=== PATIENT | female | born 1960 | race Caucasian/White ===

== ENCOUNTER 2019-08-05 16:52 | Emergency (ER) | payer BC ==
[2019-08-05 18:13] LABS: Absolute Lymphocytes (CBC) 2.8 K/uL (0.7-4.9); Basophils % 0.5 % (0-1.3); Hematocrit 43.4 % (36.0-45.0); MPV 9.2 fL (7.6-11.3); RBC Red Blood Cell Count 4.85 M/uL (3.86-4.86)
[2019-08-05] MEDS ORDERED: MORPHINE 4 MG/ML SYR ONE (18:34)
[2019-08-05] MEDS ORDERED: ONDANSETRON 4 MG/2 ML VIAL ONE (18:35)
[2019-08-05 18:45] LABS: ALT/SGPT 20 U/L (12-78); AST/SGOT 15 U/L (15-37); Albumin 3.8 g/dL (3.4-5.0); Alkaline Phosphatase 86 U/L (45-117); BUN Blood Urea Nitrogen 11 mg/dL (7-18); Bicarbonate 27 mmol/L (21-32); Bilirubin Direct < 0.1 mg/dL (0-0.2); Bilirubin Total 0.4 mg/dL (0.2-1.0); Glucose Level 115 mg/dL (74-106); Lipase 81 U/L (73-393); Potassium 3.7 mmol/L (3.5-5.1); Protein, Total 7.9 g/dL (6.4-8.2); Sodium Level 140 mmol/L (136-145)
--- NOTE | 2019-08-05 18:54 | RAD REPORT ---
EXAM DESCRIPTION: CT - Abdomen Pelvis W Contrast - 08/05/2019 6:04 pm CLINICAL HISTORY: lower abdominal pain COMPARISON: CT ABD PELVIS W CONTRAST dated 10/03/2007 TECHNIQUE: Biphasic, helical CT imaging of the abdomen and pelvis was performed following 100 ml non -ionic IV contrast. No oral contrast administered. All CT scans are performed using dose optimization technique as appropriate and may include automated exposure control or mA/KV adjustment according to patient size. FINDINGS: No suspicious findings in the lung bases. Multiple granulomas are present in the lung base s. No pericardial effusion or cardiomegaly. Fatty infiltration is seen in the liver with no focal liver lesion identified. Numerous splenic granu stevie are present without focal splenic finding. No acute pancreatic finding. Large gallstone is pres ent in the fundus of the gallbladder similar to 2008 imaging. No acute gallbladder or biliary tree fi nding. Renal function is symmetric. There is hydronephrosis of the pelvis and calices with mild dilatation o f the proximal ureter. No obstructing calculus. This is only slightly worse than 2018 and is probably chronic. No delayed function on the right. No pyelonephritis or acute parenchymal process. No bladde r abnormalities. Bilateral adrenal masses are stable from 2008. No stomach or small bowel acute finding. No appendicitis findings. Patient has very prominent sigmoid diverticulosis. Distal sigmoid colon shows wall thickening and edema. There is stranding in the giuliana cent fat. No extraluminal air or fluid identified. No free air or pneumatosis. Trace amounts of free fluid seen. No hernia, mass or bulky lymphadenopat hy. Lower lumbar degenerative change present. No acute lumbar finding. IMPRESSION: Mild sigmoid diverticulitis. No abscess, free air or surgically emergent finding. Hydronephrosis of the proximal right collecting system is present slightly worse than 2008. Renal fun ction is symmetric. This is not seen as an acute finding. Cholelithiasis, bilateral adrenal masses and fatty liver disease or all similar to comparison.
[2019-08-05] MEDS ORDERED: SMZ./TMP. 800/160 MG TABLET ONE (20:01)
[2019-08-05] MEDS ORDERED: METRONIDAZOLE 500mg IVPB 500 MG/100 ML BAG IV ONE (20:02)
--- NOTE | 2019-08-05 20:41 | ER ---
Nurse's Notes [facility] Name: Alona Louie Age: 59 yrs Sex: Female : 1960 Arrival Date: 08/05/2019 Time: 16:57 Bed 15 Private MD: None, None Diagnosis: Acute Diverticulitis Presentation: 08/04 17:00 Chief complaint: Patient states: Left hip pain that radiates into left knee for 3 ll1 weeks. Left sided groin pain for 4 days. Fever 99.4. Coronavirus screen: Proceed with normal triage. Patient denies a cough. Patient denies shortness of breath or difficulty breathing. Patient denies measured and/or subjective temperature greater than 100.4F prior to today's visit. Patient denies travel on a cruise ship or to a country the [facility] currently lists as an affected area. Patient denies contact with known and/or suspected case of COVID-19. Ebola Screen: Patient denies travel to an Ebola-affected area in the 21 days before illness onset. Initial Sepsis Screen: Does the patient meet any 2 criteria? HR > 90 bpm. No. Patient's initial sepsis screen is negative. Does the patient have a suspected source of infection? Yes: Acute abdominal pain. Risk Assessment: Do you want to hurt yourself or someone else? Patient reports no desire to harm self or others. Onset of symptoms was August 01, 2019. 17:00 Method Of Arrival: Ambulatory ll1 17:00 Acuity: GERARDO 3 ll1 Historical: - Allergies: 17:03 Levaquin; ll1 - PSHx: 17:03 D \T\ C; Tonsillectomy; ll1 - Immunization history:: Flu vaccine is not up to date. - Social history:: Smoking status: Patient reports the use of cigarette tobacco products, smokes one-half pack cigarettes per day, Patient/guardian denies using alcohol, street drugs. Screenin:30 Abuse screen: Denies threats or abuse. Nutritional screening: No deficits noted. Tuberculosis screening: No symptoms or risk factors identified. Fall Risk None identified. Assessment: 17:28 General: Appears uncomfortable, Behavior is calm, cooperative, appropriate for age. Pain: Complains of pain in left lower quadrant Pain currently is 5 out of 10 on a pain scale. Neuro: Level of Consciousness is awake, alert, obeys commands, Oriented to person, place, time, situation, Appropriate for age. Cardiovascular: Heart tones S1 S2 present Capillary refill < 3 seconds Patient's skin is warm and dry. Respiratory: Airway is patent Respiratory effort is even, unlabored. GI: Abdomen is obese, Last BM was August 05, 2019. Bowel sounds present X 4 quads. Abd is non tender Reports nausea. Derm: Skin is intact, is healthy with good turgor. 19:00 Reassessment: Patient and/or family updated on plan of care and expected duration. Pain ah level reassessed. Patient is alert, oriented x 3, equal unlabored respirations, skin warm/dry/pink. Pt lying in bed resting with eyes closed and resp even and unlabored. No needs voiced at this time. at bedside. 20:00 Reassessment: Patient and/or family updated on plan of care and expected duration. Pain ah level reassessed. REceiving antibiotics via IV. NO needs voiced at this time. Vital Signs: 17:00 BP 193 / 81; Pulse 98; Resp 18; Temp 98.8; Pulse Ox 96% ; Pain 5/10; ll1 18:00 BP 177 / 87; Pulse 87; Resp 18; Pulse Ox 93% ; ah 19:00 BP 100 / 55; Pulse 91; Resp 18; Pulse Ox 97% ; ah 20:00 BP 147 / 67; Pulse 93; Resp 18; Pulse Ox 97% ; ah ED Course: 16:57 Patient arrived in ED. mr 16:57 None, None is Private Physician. mr 17:03 Triage completed. 1 17:04 Arm band placed on Patient placed in an exam room, on a stretcher. [facility] 17:07 Andreea Underwood, RN is Primary Nurse. 17:21 Alexis Begum PA is PHCP. [facility] 17:21 Lm Schmid MD is Attending Physician. [facility] 17:31 Patient has correct armband on for positive identification. Bed in low position. Call light in reach. Side rails up X 1. Adult w/ patient. Pulse ox on. NIBP on. 17:52 Placed in gown. Pillow given. Verbal reassurance given. jp3 17:52 Initial lab(s) drawn, by me, sent to lab. Inserted saline lock: 20 gauge in right jp3 antecubital area, using aseptic technique. Blood collected. Patient maintains SpO2 saturation greater than 95% on room air. 18:04 CT Abd/Pelvis - IV Contrast Only In Process Unspecified. EDMS 20:42 Jace Chanel MD is Referral Physician. [facility] 21:18 No provider procedures requiring assistance completed. IV discontinued, intact, ah bleeding controlled, No redness/swelling at site. Pressure dressing applied. Administered Medications: 18:15 Drug: morphine 4 mg Route: IVP; Site: right antecubital; 18:15 Drug: Zofran (Ondansetron) 4 mg Route: IVP; Site: right antecubital; 20:00 Drug: Flagyl 500 mg Volume: 100 ml; Route: IVPB; Rate: 200 ml/hr; Infused Over: 30 ah mins; Site: right antecubital; 20:00 Drug: Bactrim (160 mg-800 mg (DS) 1 tablet Route: PO; Outcome: 20:40 Discharge ordered by . [facility] 21:17 Discharged to home ambulatory. 21:17 Condition: stable 21:17 Discharge instructions given to patient, Instructed on discharge instructions, follow up and referral plans. medication usage, Demonstrated understanding of instructions, follow-up care, medications, Prescriptions given X 3. 21:20 Patient left the ED. Signatures: Dispatcher [employer] EDMS Alexis Begum PA PA jmm Rivera, Mary Beto Garcia jp3 Andreea Underwood, RN Sylvain Craft RN RN ll1
--- NOTE | 2019-08-05 20:41 | EDPHYS ---
Physician Documentation [facility] Name: Alona Louie Age: 59 yrs Sex: Female : 1960 Arrival Date: 08/05/2019 Time: 16:57 Bed 15 Private MD: None, None ED Physician Lm Schmid HPI: 08/04 17:36 This 59 yrs old Female presents to ER via Ambulatory with complaints of jmm Abdominal Pain, Hip Pain, Knee Pain. 17:36 The patient presents with abdominal pain in the lower abdomen. Onset: The jmm symptoms/episode began/occurred gradually, 4 day(s) ago. The symptoms do not radiate. Associated signs and symptoms: Pertinent positives: nausea. The symptoms are described as achy. This is a 59 year old female that presents to the ED with complaints of left sided abdominal pain beginning approx 4 days ago. Patient also complains of ongoing pain to her left back, radiating down her left hip and left lower leg. . Historical: - Allergies: 17:03 Levaquin; ll1 - PSHx: 17:03 D \T\ C; Tonsillectomy; ll1 - Immunization history:: Flu vaccine is not up to date. - Social history:: Smoking status: Patient reports the use of cigarette tobacco products, smokes one-half pack cigarettes per day, Patient/guardian denies using alcohol, street drugs. ROS: 17:36 Constitutional: Negative for fever, chills, and weight loss, Cardiovascular: Negative jmm for chest pain, palpitations, and edema, Respiratory: Negative for shortness of breath, cough, wheezing, and pleuritic chest pain. 17:36 Abdomen/GI: Positive for abdominal pain. 17:36 Back: Positive for pain with movement. 17:36 MS/extremity: Positive for pain. 17:36 All other systems are negative. Exam: 17:36 Constitutional: This is a well developed, well nourished patient who is awake, alert, jmm and in no acute distress. Head/Face: atraumatic. Eyes: EOMI, no conjunctival erythema appreciated ENT: Moist Mucus Membranes Neck: Trachea midline, Supple Chest/axilla: Normal chest wall appearance and motion. Cardiovascular: Regular rate and rhythm. No edema appreciated Respiratory: Normal respirations, no respiratory distress appreciated 17:36 Back: Normal ROM Skin: General appearance color normal MS/ Extremity: Moves all extremities, no obvious deformities appreciated, no edema noted to the lower extremities Neuro: Awake and alert, normal gait Psych: Behavior is normal, Mood is normal, Patient is cooperative and pleasant 17:36 Abdomen/GI: Inspection: abdomen appears normal, Bowel sounds: normal, Palpation: soft, moderate abdominal tenderness, in the left lower quadrant. Vital Signs: 17:00 BP 193 / 81; Pulse 98; Resp 18; Temp 98.8; Pulse Ox 96% ; Pain 5/10; ll1 18:00 BP 177 / 87; Pulse 87; Resp 18; Pulse Ox 93% ; ah 19:00 BP 100 / 55; Pulse 91; Resp 18; Pulse Ox 97% ; ah 20:00 BP 147 / 67; Pulse 93; Resp 18; Pulse Ox 97% ; ah MDM: 17:36 Patient medically screened. [facility] 20:38 Data reviewed: vital signs, nurses notes. Counseling: I had a detailed discussion with [facility] the patient and/or guardian regarding: the historical points, exam findings, and any diagnostic results supporting the discharge/admit diagnosis, lab results, radiology results, the need for outpatient follow up, to return to the emergency department if symptoms worsen or persist or if there are any questions or concerns that arise at home. 21:27 ED course: Patient is alert and non toxic in appearance in the ED. Back pain most jmm likely due to sciatica. I do not suspect cauda equina or abscess. CT reveals mild diverticulitis. Patient's pain is relieved in the ED. Patient is given strict return precautions. Patient understood and agrees with the plan of care. . 08/04 17:37 Order name: Basic Metabolic Panel; Complete Time: 18:46 [facility] 08/04 17:37 Order name: CBC with Diff; Complete Time: 18:25 [facility] 08/04 17:37 Order name: Hepatic Function; Complete Time: 18:46 [facility] 08/04 17:37 Order name: Lipase; Complete Time: 18:46 [facility] 08/04 18:34 Order name: CREATININE WHOLE BLOOD; Complete Time: 18:37 [facility] 08/04 20:08 Order name: Urine Dipstick--Ancillary (enter results) wy 08/04 17:37 Order name: IV Saline Lock; Complete Time: 17:53 [facility] 08/04 17:37 Order name: Labs collected and sent; Complete Time: 17:53 [facility] 08/04 17:37 Order name: Urine Dipstick-Ancillary (obtain specimen); Complete Time: 20:09 [facility] 08/04 17:38 Order name: CT Abd/Pelvis - IV Contrast Only; Complete Time: 18:58 [facility] Administered Medications: 18:15 Drug: morphine 4 mg Route: IVP; Site: right antecubital; 18:15 Drug: Zofran (Ondansetron) 4 mg Route: IVP; Site: right antecubital; 20:00 Drug: Flagyl 500 mg Volume: 100 ml; Route: IVPB; Rate: 200 ml/hr; Infused Over: 30 ah mins; Site: right antecubital; 20:00 Drug: Bactrim (160 mg-800 mg (DS) 1 tablet Route: PO; ah Disposition: 08/05/19 20:40 Discharged to Home. Impression: Acute Diverticulitis. - Condition is Stable. - Discharge Instructions: Diverticulitis. - Prescriptions for Flagyl 500 mg Oral Tablet - take 1 tablet by ORAL route every 6 hours for 10 days; 40 tablet. Ultracet 37.5- 325 mg Oral Tablet - take 1 tablet by ORAL route every 6 hours - for up to 5 days; do not exceed 8 tablets per day.; 20 tablet. Bactrim DS 800- 160 mg Oral Tablet - take 1 tablet by ORAL route every 12 hours for 10 days; 20 tablet. - Medication Reconciliation Form, Thank You Letter, Antibiotic Education, Prescription Opioid Use form. - Follow up: Private Physician; When: 2 - 3 days; Reason: Recheck today's complaints, Continuance of care, Re-evaluation by your physician. Follow up: Jace Chanel MD; When: 2 - 3 days; Reason: Recheck today's complaints, Continuance of care, Re-evaluation by your physician. Addendum: 08/08/2019 07:21 Co-signature as Attending Physician, Lm Schmid MD. r n Signatures: Dispatcher [employer] EDMS Alexis Begum PA PA jmm Nieto, Roman, MD MD rn Harris, Amy, RN RN Sylvain Hilliard RN RN ll1 Corrections: (The following items were deleted from the chart) 08/04 20:42 20:40 08/05/2019 20:40 Discharged to Home. Impression: Acute Diverticulitis. Condition jmm is Stable. Forms are Medication Reconciliation Form, Thank You Letter, Antibiotic Education, Prescription Opioid Use. Follow up: Private Physician; When: 2 - 3 days; Reason: Recheck today's complaints, Continuance of care, Re-evaluation by your physician. [facility] 21:20 20:42 08/05/2019 20:40 Discharged to Home. Impression: Acute Diverticulitis. Condition ah is Stable. Discharge Instructions: Diverticulitis. Prescriptions for Flagyl 500 mg Oral Tablet - take 1 tablet by ORAL route every 6 hours for 10 days; 40 tablet, Ultracet 37.5-325 mg Oral Tablet - take 1 tablet by ORAL route every 6 hours - for up to 5 days; do not exceed 8 tablets per day.; 20 tablet, Bactrim DS 800-160 mg Oral Tablet - take 1 tablet by ORAL route every 12 hours for 10 days; 20 tablet. and Forms are Medication Reconciliation Form, Thank You Letter, Antibiotic Education, Prescription Opioid Use. Follow up: Private Physician; When: 2 - 3 days; Reason: Recheck today's complaints, Continuance of care, Re-evaluation by your physician. Follow up: Jace Chanel; When: 2 - 3 days; Reason: Recheck today's complaints, Continuance of care, Re-evaluation by your physician. [facility]
[2019-08-05 21:27] VITALS: TEMP 98.8
[2019-08-05 21:30] VITALS: O2SAT 97
[2019-08-05 21:31] VITALS: BP 147/67
[2019-08-05 21:46] LABS: Urine Blood TRACE (NEG); Urine Glucose NEGATIVE (NEG); Urine Protein NEGATIVE (NEG); Urine Specific Gravity 1.015 (1.005-1.030)
== END 2019-08-05 21:20 | disposition home or self-care (01) ==
LOC: ER 16:52
DX: K57.92 Diverticulitis of intestine, part unspecified, without perforation or abscess without bleeding (principal); F17.210 Nicotine dependence, cigarettes, uncomplicated; Z88.1 Allergy status to other antibiotic agents
CPT/HCPCS: 85025; 80048; 36415; 82565; 80076; 81003; 83690; 74177; 96375; 96374; 99284; Q9967; J2405

== ENCOUNTER 2023-07-14 15:14 | Emergency (ER) | payer BC ==
--- OUTSIDE RECORDS SUMMARY | 2023-07-14 15:17 | XMS REPORT | Continuity of Care Document ---
Author Name Unknown Address [address] [facility] [address] [place] [id number] [facility] thconnect Address [address] [facility] [address] [place] [address] Care Team Providers Care Trackmobile Operator Name Role Phone ETHEL WRAY Attending Clinician UnavailJESUS Campbell Attending Clinician UnavailDUSTIN Wilks V. Attending Clinician Unavailable DUSTIN COUCH V. Admitting Clinician Unavailable Encounters Start Date/Time End Date/Time Encounter Type Admission Type Attending Clinicians Care Facility Care Department Encounter ID Source 2013-08-10 21:11:00 2013-08-11 02:18:00 Emergency ER ETHEL WRAY [facility] [id number] [facility] 2006-08-14 07:48:00 2006-08-14 11:35:00 Emergency ER JESUS BRODERICK [facility] [id number] [facility] 2004-06-15 16:45:00 2004-06-16 18:41:00 Inpatient DUSTIN TORRES [facility] [id number] [facility]
[2023-07-14] MEDS ORDERED: FLUCONAZOLE 100 MG TAB ONE (17:28)
[2023-07-14] MEDS ORDERED: CEPHALEXIN 250 MG CAP ONE (17:28)
[2023-07-14] MEDS ORDERED: DOXYCYCLINE 100 MG CAP PO ONE (17:29)
[2023-07-14] MEDS ORDERED: MUPIROCIN 2% OINT 22GM TUBE TOP ONE (17:29)
--- NOTE | 2023-07-14 17:39 | EDPHYS ---
Physician Documentation [facility] Name: Alona Louie Age: 63 yrs Sex: Female : 1960 Arrival Date: 07/14/2023 Time: 15:14 Bed 12 Private MD: ED Physician Sindhu Cain HPI: 07/13 18:57 This 63 yrs old Female presents to ER via Ambulatory with complaints of Hand Pain, Hand sd2 Swelling. 18:57 63-year-old female presents with chief complaint of right hand pain and swelling since sd2 she initially had a skin tear to it approximately 2 weeks ago and then had a second skin tear. She reports she has had some spreading redness from the area along with blistering. She also reports an area to her groin that has been irritated as well. She denies any associated fevers or vomiting.. Historical: - Allergies: 15:41 Levaquin; hb - PMHx: 15:41 Diverticulitis; hb - Immunization history:: Adult Immunizations up to date. - Infectious Disease History:: Denies. - Social history:: Smoking status: Patient denies any tobacco usage or history of. ROS: 18:57 Constitutional: Negative for fever, chills, and weight loss, Eyes: Negative for injury, sd2 pain, redness, and discharge, Cardiovascular: Negative for chest pain, palpitations, and edema, Respiratory: Negative for shortness of breath, cough, wheezing. Abdomen/GI: Negative for abdominal pain, nausea, vomiting, diarrhea. 18:57 MS/extremity: Positive for erythema, pain, swelling, Negative for 18:57 Skin: Positive for erythema, swelling, Exam: 18:57 Constitutional: This is a well developed, well nourished patient who is awake, alert, sd2 and in no acute distress. Head/Face: Normocephalic, atraumatic. Eyes: EOMI, normal conjunctiva bilaterally Chest/axilla: Normal chest wall appearance and motion. Nontender with no deformity. Cardiovascular: Regular rate and rhythm with a normal S1 and S2. No gallops, murmurs, or rubs. 2+ distal pulses. Respiratory: Lungs have equal breath sounds bilaterally, clear to auscultation and percussion. No rales, rhonchi or wheezes noted. No increased work of breathing, no retractions or nasal flaring. Abdomen/GI: Soft, non-tender, with normal bowel sounds. No guarding or rebound. No evidence of tenderness throughout. Area noted to L inferior pannus consistent with yeast infection and skin irritation. Skin: Warm, dry with normal turgor. Flat blisters noted to dorsum of right hand along with surrounding erythema, warmth and small amount of swelling. FROM of all joints intact. MS/ Extremity: Pulses equal, no cyanosis. Neurovascular intact. Full, normal range of motion. Vital Signs: 15:38 BP 200 / 100; Pulse 92; Resp 16; Temp 98.3(O); Pulse Ox 100% on R/A; Weight 127.01 kg; hb Height 5 ft. 7 in. ; Pain 10/10; 17:31 BP 185 / 84; cm10 15:38 Body Mass Index 43.85 (127.01 kg, 170.18 cm) hb 15:38 Pain Scale: Adult hb MDM: 16:47 Patient medically screened. sd2 18:57 Differential diagnosis: Cellulitis, abscess, tenosynovitis, yeast infection, impetigo sd2 among others. Data reviewed: vital signs, nurses notes. I considered the following discharge prescriptions or medication management in the emergency department Medications were administered in the Emergency Department. See MAR. Counseling: I had a detailed discussion with the patient and/or guardian regarding the historical points, exam findings, and any diagnostic results supporting the discharge/admit diagnosis, the presence of at least one elevated blood pressure reading (>120/80) during this emergency department visit, the need for outpatient follow up, to return to the emergency department if symptoms worsen or persist or if there are any questions or concerns that arise at home. ED course: Discussed performing labs and admission with patient. Her is in the hospital at [facility] for treatment and she would prefer to try outpatient management first and follow up with her PCP instead. She reports she will return immediately if it worsens. Also counseled on her elevated BP. NO prior hx of HTN. She will keep a log at home and follow up with her PCP regarding this as well. She verbalizes understanding of discharge plan and strict return precautions.. 07/13 17:22 Order name: Recheck Blood Pressure; Complete Time: 17:34 ll1 Administered Medications: 17:34 Drug: Mupirocin Topical Ointment 2 % 1 application Topical once Route: Topical; Site: cm10 affected area; 17:34 Drug: Fluconazole PO 150 mg PO once Route: PO; cm10 17:43 Follow up: Response: Medication administered at discharge. cm10 17:34 Drug: Cephalexin PO 500 mg PO once Route: PO; cm10 17:43 Follow up: Response: Medication administered at discharge. cm10 17:34 Drug: Doxycycline PO 100 mg PO once Route: PO; cm10 17:42 Follow up: Response: Medication administered at discharge. cm10 Disposition Summary: 07/14/23 17:39 Discharge Ordered Problem: new sd2 Symptoms: are unchanged sd2 Condition: Stable sd2 Diagnosis - Cellulitis of right hand sd2 - Candidal skin infection sd2 - Elevated blood-pressure reading, without diagnosis of hypertension sd2 Followup: sd2 - With: Private Physician - When: 1 - 2 days - Reason: Wound Recheck, Re-evaluation by your physician Discharge Instructions: - Discharge Summary Sheet sd2 - Cellulitis, Adult sd2 - Hypertension, Adult sd2 - Skin Yeast Infection sd2 Forms: - Medication Reconciliation Form sd2 - Antibiotic Education sd2 - Prescription Opioid Use sd2 - Patient Portal Instructions sd2 - Leadership Thank You Letter sd2 Prescriptions: - mupirocin 2 % Topical ointment - apply 1 application TOPICAL route 2 times per day for 10 days; 1 Applicator; sd2 Refills: 0, Product Selection Permitted - Cephalexin 500 mg Oral Capsule - take 1 capsule ORAL route every 6 hours for 10 days; 40 capsule; Refills: 0, sd2 Product Selection Permitted - Doxycycline Hyclate 100 mg Oral Tablet - take 1 tablet ORAL route every 12 hours; 20 tablet; Refills: 0, Product sd2 Selection Permitted Signatures: Trixie Simon RN RN Sylvain Hilliard RN RN ll1 Sindhu Cain MD MD sd2 Odalys Avendaño RN RN cm10
--- NOTE | 2023-07-14 17:39 | ER ---
Nurse's Notes [facility] Name: Alona Louie Age: 63 yrs Sex: Female : 1960 Arrival Date: 07/14/2023 Time: 15:14 Bed 12 Private MD: Diagnosis: Cellulitis of right hand;Candidal skin infection;Elevated blood-pressure reading, without diagnosis of hypertension Presentation: 07/13 15:38 Chief complaint: Skin tear to right hand 10 days ago, started to swell and have hb blistering 3 days ago. Coronavirus screen: At this time, the client does not indicate any symptoms associated with coronavirus-19. Ebola Screen: No symptoms or risks identified at this time. Initial Sepsis Screen: Does the patient meet any 2 criteria? No. Patient's initial sepsis screen is negative. Does the patient have a suspected source of infection? No. Patient's initial sepsis screen is negative. Risk Assessment: Do you want to hurt yourself or someone else? Patient reports no desire to harm self or others. Onset of symptoms was July 04, 2023. 15:38 Method Of Arrival: Ambulatory hb 15:38 Acuity: GERARDO 3 hb Triage Assessment: 17:45 General: Appears in no apparent distress. comfortable, Behavior is calm, cooperative. cm10 Pain: Complains of pain in right hand. Historical: - Allergies: 15:41 Levaquin; hb - PMHx: 15:41 Diverticulitis; hb - Immunization history:: Adult Immunizations up to date. - Infectious Disease History:: Denies. - Social history:: Smoking status: Patient denies any tobacco usage or history of. Screenin:43 [facility] ED Fall Risk Assessment (Adult) History of falling in the last 3 months, cm10 including since admission No falls in past 3 months (0 pts) Confusion or Disorientation No (0 pts) Intoxicated or Sedated No (0 pts) Impaired Gait No (0 pts) Mobility Assist Device Used No (0 pt) Altered Elimination No (0 pt) Score/Fall Risk Level 0 - 2 = Low Risk Oriented to surroundings, Maintained a safe environment, Hourly rounding (assess needs \T\ fall precautionary measures) done. Abuse screen: Denies threats or abuse. Denies injuries from another. Nutritional screening: No deficits noted. Tuberculosis screening: No symptoms or risk factors identified. Vital Signs: 15:38 BP 200 / 100; Pulse 92; Resp 16; Temp 98.3(O); Pulse Ox 100% on R/A; Weight 127.01 kg; hb Height 5 ft. 7 in. ; Pain 10/10; 17:31 BP 185 / 84; cm10 15:38 Body Mass Index 43.85 (127.01 kg, 170.18 cm) hb 15:38 Pain Scale: Adult hb ED Course: 15:16 Patient arrived in ED. ts1 15:41 Triage completed. hb 15:43 Arm band placed on. hb 16:47 Sindhu Cain MD is Attending Physician. sd2 17:30 Odalys Avendaño, DIONICIO is Primary Nurse. cm10 17:43 Assisted provider with: Skin exam. Patient did not have IV access during this emergency cm10 room visit. 17:44 Patient has correct armband on for positive identification. Provided Education on: cm10 Follow-up instructions. Sitter at bedside. 17:44 Wound care: to cellulitis located on right hand was dressed with Neosporin Kerlix, cm10 Patient tolerated well. Administered Medications: 17:34 Drug: Mupirocin Topical Ointment 2 % 1 application Topical once Route: Topical; Site: cm10 affected area; 17:34 Drug: Fluconazole PO 150 mg PO once Route: PO; cm10 17:43 Follow up: Response: Medication administered at discharge. cm10 17:34 Drug: Cephalexin PO 500 mg PO once Route: PO; cm10 17:43 Follow up: Response: Medication administered at discharge. cm10 17:34 Drug: Doxycycline PO 100 mg PO once Route: PO; cm10 17:42 Follow up: Response: Medication administered at discharge. cm10 Medication: 17:44 VIS not applicable for this client. cm10 Outcome: 17:39 Discharge ordered by . sd2 17:44 Discharged to home ambulatory, cm10 17:44 Condition: good 17:44 Discharge instructions given to patient, Instructed on discharge instructions, follow up and referral plans. medication usage, wound care, Demonstrated understanding of instructions, follow-up care, medications, wound care, Prescriptions given X 3, 17:45 Patient left the ED. cm10 Signatures: Trixie Simon RN RN Sindhu Cain MD MD sd2 Yessi Hernandez PAS PAS ts1 Odalys Avendaño, RN RN cm10
[2023-07-14 18:04] VITALS: TEMP 98.3; O2SAT 100
[2023-07-14 18:05] VITALS: BP 185/84
== END 2023-07-14 17:45 | disposition home or self-care (01) ==
LOC: ER 15:14
DX: L03.113 Cellulitis of right upper limb (principal); B37.2 Candidiasis of skin and nail; R03.0 Elevated blood-pressure reading, without diagnosis of hypertension; Z88.1 Allergy status to other antibiotic agents
CPT/HCPCS: 99284

== ENCOUNTER 2023-10-31 14:19 | Inpatient (IN) | payer BC, OTHER ==
--- OUTSIDE RECORDS SUMMARY | 2023-10-31 22:11 | XMS REPORT | Continuity of Care Document ---
Author Name Unknown Address [address] [facility] [address] [id number] [facility] thconnect Address [address] [facility] [place] [address] Care Team Providers Care Physical Therapist Clinic Director Name Role Phone DAVID GRIMES Attending Clinician STEPHEN Ramírez Attending Clinician BANDAR Mcconnell Attending Clinician ETHEL Sheldon Attending Clinician JESUS Siddiqui Attending Clinician UnavailDUSTIN Wilks V. Attending Clinician KIT Nunez Admitting Clinician DUSTIN Burr V. Admitting Clinician Unavailable Payers Payer Name Policy Type Policy Number Effective Date Expirati on Date Source [facility] [place] PPO AND OUT OF STATE [id number] 2007 00:00:00 Encounters Start Date/Time End Date/Time Encounter Type Admission Type Attending Clinicians Care Facility Care Department Encounter ID Source 2023-12-10 15:30:00 2023-12-10 15:30:00 Outpatient DAVID GRMIES [facility] [id number] [facility] 2023-10-29 12:42:00 2023-10-31 20:45:00 Inpatient STEPHEN MARLOW [facility] [id number] [address] [facility] 2023-08-22 15:45:00 2023-08-22 18:45:00 Emergency ER BANDAR MORRIS [facility] [id number] [facility] 2013-08-10 21:11:00 2013-08-11 02:18:00 Emergency ER NILSETHEL Malave [facility] [id number] [facility] 2006-08-14 07:48:00 2006-08-14 11:35:00 Emergency ER JESUS BRODERICK [facility] [id number] [facility] 2004-06-15 16:45:00 2004-06-16 18:41:00 Inpatient DUSTIN TORRES [facility] [id number] [facility]
[2023-10-31 22:30] VITALS: BMI 38.5
[2023-10-31] MEDS ORDERED: POLYETHYL GLY 3350 17 GM/DOSE PO PRN (22:38)
[2023-10-31] MEDS ORDERED: MELATONIN 3 MG TABLET PO PRN (22:39)
[2023-10-31] MEDS: ACETAMINOPHEN 500 MG TAB PO PRN (22:58)
[2023-11-01] MEDS: HEPARIN 5000 UNIT/ML 1 ML VIAL SQ SCH (00:42)
[2023-11-01 05:32] LABS: Absolute Basophils 0.1 K/uL (0-0.5); Absolute Eosinophils 0.2 K/uL (0-0.5); Absolute Lymphocytes (CBC) 2.5 K/uL (0.7-4.9); Absolute Monocytes 0.8 K/uL (0.1-1.3); Absolute Neutrophil 6.4 K/uL (1.8-8.0); Basophils % 0.7 % (0-1.3); Eosinophils % 2.1 % (0-4.4); Hematocrit 45.2 % (36.0-45.0); Hemoglobin 15.1 g/dL (12.0-15.0); Lymphocytes % 25.1 % (15.3-44.8); MCH 30.3 pg (27.0-35.0); MCHC 33.4 g/dL (32.0-36.0); MCV 90.6 fL (80-100); MPV 8.7 fL (7.6-11.3); Monocytes % 7.9 % (3.3-12.3); Neutrophils % 64.2 % (41.7-73.7); Platelets 250 thou/uL (152-406); RBC Red Blood Cell Count 4.98 M/uL (3.86-4.86); Red Cell Distribution Width 14.1 % (12.1-15.2)
[2023-11-01 05:54] LABS: Albumin 3.5 g/dL (3.4-5.0); Anion Gap 6.7 mEq/L (5.0-15.0); Magnesium 2.2 mg/dL (1.6-2.4); Potassium 3.7 mEq/L (3.5-5.1); Prealbumin 19.4 mg/dL (20-40)
--- NOTE | 2023-11-01 06:51 | RAD REPORT ---
EXAMINATION: ONE VIEW CHEST XR CLINICAL INDICATION: Female, 63 years old. [facility] hx of L PE TECHNIQUE: 1 View, AP supine, X-ray of the chest was performed. [id number]. COMPARISON: No prior exam. FINDINGS: Lungs and pleura: Nonspecific prominence of the pulmonary interstitium. No effusion. Heart and mediastinum: Normal heart size. Unremarkable mediastinal contours. Osseous structures: No acute abnormality. Tubes/lines: None Other: None. IMPRESSION: Nonspecific prominence of the pulmonary interstitium could reflect mild edema or an atypical infectio us process.
[2023-11-01] MEDS: CLOPIDOGREL 75 MG TABLET PO SCH (08:00)
--- NOTE | 2023-11-01 09:28 | P.RH.PN ---
Estimated Length of Stay: 21 Expected Discharge Date: 11/21/23 Discharge Disposition Plan: Home Family Support: Yes Care Home Goal: Mobility, Transfers, Self Care Vital Signs: Last Vital Signs Temp 97.8 F 10/31/23 22:20 Pulse 76 10/31/23 23:55 Resp 18 10/31/23 22:20 BP 157/81 H 10/31/23 23:55 Pulse Ox 93 10/31/23 22:20 Laboratory: Laboratory Last Values WBC 10.00 thou/uL (4.3-10.9) 11/01/23 05:02 RBC 4.98 M/uL (3.86-4.86) H 11/01/23 05:02 Hgb 15.1 g/dL (12.0-15.0) H 11/01/23 05:02 Hct 45.2 % (36.0-45.0) H 11/01/23 05:02 MCV 90.6 fL (80-100) 11/01/23 05:02 MCH 30.3 pg (27.0-35.0) 11/01/23 05:02 MCHC 33.4 g/dL (32.0-36.0) 11/01/23 05:02 RDW 14.1 % (12.1-15.2) 11/01/23 05:02 Plt Count 250 thou/uL (152-406) 11/01/23 05:02 MPV 8.7 fL (7.6-11.3) 11/01/23 05:02 Neutrophils % 64.2 % (41.7-73.7) 11/01/23 05:02 Lymphocytes % 25.1 % (15.3-44.8) 11/01/23 05:02 Monocytes % 7.9 % (3.3-12.3) 11/01/23 05:02 Eosinophils % 2.1 % (0-4.4) 11/01/23 05:02 Basophils % 0.7 % (0-1.3) 11/01/23 05:02 Absolute Neutrophils 6.4 K/uL (1.8-8.0) 11/01/23 05:02 Absolute Lymphocytes 2.5 K/uL (0.7-4.9) 11/01/23 05:02 Absolute Monocytes 0.8 K/uL (0.1-1.3) 11/01/23 05:02 Absolute Eosinophils 0.2 K/uL (0-0.5) 11/01/23 05:02 Absolute Basophils 0.1 K/uL (0-0.5) 11/01/23 05:02 Sodium 138 mEq/L (136-145) 11/01/23 05:02 Potassium 3.7 mEq/L (3.5-5.1) 11/01/23 05:02 Chloride 107 mEq/L (98-107) 11/01/23 05:02 Carbon Dioxide 28 mEq/L (21-32) 11/01/23 05:02 Anion Gap 6.7 mEq/L (5.0-15.0) 11/01/23 05:02 BUN 28 mg/dL (7-18) H 11/01/23 05:02 Creatinine 0.84 mg/dL (0.55-1.02) 11/01/23 05:02 Est GFR (CKD-EPI) 79 ml/min (=/>90) L 11/01/23 05:02 Glucose 113 mg/dL (74-106) H 11/01/23 05:02 Calcium 9.7 mg/dL (8.5-10.1) 11/01/23 05:02 Magnesium 2.2 mg/dL (1.6-2.4) 11/01/23 05:02 Albumin 3.5 g/dL (3.4-5.0) 11/01/23 05:02 Prealbumin 19.4 mg/dL (20-40) L 11/01/23 05:02 Weight: 246 lb Wound Present: No Physician Update: Labs reviewed and are stable. Pain level is 4/10. Has Tylenol and Lidocaine patch. Left hemiparesis is dense. She will be evaluated by speech therapy and physical therapy today. Summary: Patient's care plan and buttermaker goals have been reviewed and revised as necessary. Please see the Rehabilitation Signature page for all necessary signatures.
[2023-11-01] MEDS: NICOTINE 14 MG/PAT TD SCH (09:37)
[2023-11-01] MEDS: lisinopriL 20 MG TAB PO SCH (09:38)
[2023-11-01] MEDS: LIDOCAINE 4% PATCH TOP SCH (09:38)
[2023-11-01] MEDS: ASPIRIN 81 MG CHEWABLE TABLET PO SCH (11:03)
[2023-11-01 15:44] LABS: Specific Gravity 1.028 (1.005-1.030); Sqamous Epithelial <5 /HPF (None Seen); Urine Bacteria <20 /HPF (<20); Urine Bilirubin NEGATIVE (Negative); Urine Blood Negative (Negative); Urine Clarity Clear (Clear); Urine Color Yellow (Yellow); Urine Culture Reflex Order NOT NEEDED; Urine Glucose NEGATIVE (Negative); Urine Ketones NEGATIVE (Negative); Urine Micro Reflex YN NO BILL MICROSCOPIC; Urine Mucus 1+ /HPF (None Seen); Urine Nitrite NEGATIVE (Negative); Urine Protein TRACE (Negative); Urine Urobilinogen Normal (Normal); Urine WBC <5 /HPF (<5); Urine WBC Clump Rare /HPF (None Seen); Urine pH 5.5 (5.0-7.0)
[2023-11-01 17:17] LABS: C.diff Antigen/Toxin Ag neg : Tox neg (NEG : NEG); CDIFF INTERNAL NEG CONTROL White Background (WHITE BKGD); STOOL CONSISTENCY Liquid/Semi-Solid
[2023-11-01] MEDS ORDERED: ATORVASTATIN 80 MG TAB ONE (19:00)
[2023-11-01] MEDS: ATORVASTATIN 80 MG TAB PO SCH (19:04)
[2023-11-01] MEDS: MAGNESIUM OXIDE 400 MG TAB PO SCH (19:04)
[2023-11-01] MEDS: APIXABAN 2.5 MG TABLET PO SCH (19:04)
[2023-11-01] MEDS: ONDANSETRON 4 MG (ODT) TAB PO PRN (21:21)
--- NOTE | 2023-11-02 01:00 | HP ---
Date of Admission: 10/31/2023 Time Of Service: 1 p.m. Chief Complaint: Stroke involving right lenticulostriate region with left-sided paresis dense, upper more than lower extremity weakness, comorbidities of hypertension, diverticulosis, history of smokin g. History Of Present Illness: Ms. Louie is a 63-year-old patient with hypertension, a 75 pack-year hist ory of cigarette smoking, and diverticulosis, who came to [facility] Room on 10/26 with dys arthria and left-sided weakness. The time of onset of her stroke was unclear and therefore intraveno us thrombolysis was out of her window. She was treated with aspirin, Plavix, folic acid, and statin, and sent to [facility] for higher level of care. Her CT angiogram showed larg e vessel arthrosclerosis without large vessel occlusion. 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 There is also a chr onic small left anterior thalamic infarct and chronic microvascular ischemic changes. Transthoracic echocardiogram was unremarkable. Antiplatelet medications and high-dose intense statin therapy were continued. She had permissive hypertension. Her blood pressures did return to high normal levels, b ut within range for poststroke phase. She had hypoxia due to smoking and required 3 L of oxygen via nasal cannula. Prior to her stroke, she did not use oxygen at home. Prior to her stroke, she was in dependent performing activities of daily living and was with her daughter. Following the stroke, she required moderate assistance for bed mobility, transfers, mobilization, only able to ambulate 12 fee t with moderate assistance. She has severe dense left upper extremity more lower extremity weakness, dysarthria, dysphagia, and memory loss. She has used a PureWick for urination and requires bladder training. She could benefit from aggressive inpatient rehabilitation to reduce her risk of rehospita lization and help her to return to her prior level of functioning. Past Medical History: As noted above. Social History: The patient has a 75 pack-year history of tobacco cigarettes. Family History: Noncontributory. Imaging: Chest x-ray on 10/27 shows interval placement of enteric tube, partially changed to Dobhoff . Heart and mediastinum normal. Lungs and pleura show low volume. There is vascular crowding. The re is increased prominence of bilateral perihilar predominance with interstitial opacities. Brain MR I without contrast on 10/27 shows restricted diffusion within the right balderas radiata, posterior ferguson b of the right internal capsule, compatible with an acute infarct in the right lenticulostriate perfo rator territory. In addition, chronic small left anterior thalamic infarct and chronic microvascular ischemic changes. Current Level Of Functioning: She required supervision for eating, oral hygiene. Maximal assistance for toileting, bathing, and dressing upper and lower body. Donning and doffing footwear at maximal assistance level. Rolling [id number], moderate assistance. [id number], moderate assistance. Sliding to side of bed, moderate assistance needed. Transfer from bed to chair to toile t to shower at a moderate assistance level. Gait, she ambulated just 3 feet with a rolling walker at maximum assistance level, unable to negotiate stairs at this point. Medications: Reviewed. She will have permissive hypertension, statin, folic acid will be continued. Parameters for holding blood pressure when systolic is less than 130. Urinalysis will be done to r ule out infection. She will have blood work which will be pending. Laboratory Studies: White blood cell count 11.7, hemoglobin 15, hematocrit 45, platelets 252. Sodiu m 140, potassium 3.9, chloride 109, glucose 99, BUN 14, creatinine 0.89, calcium 9.7. Review of Systems: She has of course dense paresis and weakness of the left upper extremity. Mild nausea. No vomiting. Mild myalgias, arthralgias. No rash. No psychiatric complaints. No other positives on the system s review. Physical Examination: Vital Signs: Blood pressure 145/76, pulse 68, temperature afebrile, respiratory rate 16. Height 67 inches, weight 246 pounds, BMI 38.525. General: Ms. Louie is sitting in a chair in the watts. HEENT: She is normocephalic, atraumatic. Sclerae anicteric. Oropharynx pink, moist. Neck: Supple. Chest: Clear. Heart: Regular. Extremities: Show no significant edema, cyanosis, or clubbing. Neurological: Slight decrease of left nasolabial fold. Slight decrease to touch and temperature in the left face. Left upper extremity, 0 movement at shoulders, biceps, triceps, and finger flexion, e xtension, and wrist flexion, extension. Left lower extremity, she has 1/5 proximally and distally. Decreased sensation on the left compared to right upper and lower extremity. Right side fully strong 5/5. She is as noted only able to ambulate 2 feet with maximal assistance. Rehab And Medical Assessment And Plan: Ms. Louie is a 63-year-old patient with hypertension, chronic tobacco use, and a right lenticulostriate territory stroke with dense paresis of the left upper more than lower extremity, dysarthria, dysphagia. She also has cognitive impairment. Her rehab impairmen t category, 01, stroke. Her impairment group code is 0.11, left body, right brain. 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 Her comorbidities are decre ased mobility, decreased physical functioning, dysphagia, essential hypertension, hypoxia, left hemip aresis, tobacco use, pleural effusion. She also has left shoulder pain, only did indicate she go all the left side, 18 patches on the left shoulder, 1 was put on the left elbow. Plan: She will have physical, occupational, and speech therapy for 3.5 hours, 5 of 7 days. As noted , some mild permissive hypertension. In addition, high-dose statin and folic acid, address issues of potential aspiration. She will be upright with all meals, transfers will be by a gait belt with a r olling walker at bedside to reduce her fall risk. Mobilization largely at this point may be by a whe elchair. DVT prophylaxis provided with Eliquis 2.5 mg twice daily for sleep, melatonin 3 mg at night for constipation, Senokot-S 2 tablets at night for pain, Tylenol 500 mg every 6 hours as needed. Comorbidities That Are Impacting Rehabilitation: Her tobacco dependency puts her at risk for tobacco withdrawal. She may have nicotine patch 14 mg patch daily or 21 mg patch daily depending on withdra wal symptoms. She is at high risk of fall because of the dense paresis of the left side including he r left upper extremity, so gait belt and rolling walker to be used at all times with all transfers an d all therapy. Of course, risk of aspiration present, upright with meals. Chest x-ray will be used as appropriate. Ms. Louie will have 24 hours a day, 7 days a week skilled rehabilitation and nursing to address acute issues, changes, need for communication with physicians regarding her medical status and potential co mplication and need for intervention with medications, blood draws, urinalysis, and imaging. She angelica l have daily physician evaluation and management for integrating her therapy with her medical care in order for her to have the best outcome. She will have social security specialist evaluation and management for discharge planning, home equipment, for therapy to continue, for physician followup. If need be, ad ditional help will be sought from the Hospitalist Service and GI Service. Ms. Loiue has a good understanding of the process of admission to the inpatient rehabilitation [facility] and how she will benefit from physical, occupational, and speech therapy. Rehabilitation at a less er facility such as [facility] would likely not result in best outcome as it is within the [facility] rehabilitation unit. Therefore, it is necessary and helpful for [facility]. Prognosis: Good. Expected Length Of Stay: Up to 3 weeks. Rehab Specific Plan: 1.Ms. Louie will have physical, occupational, and speech therapy to improve her ability to first ambu late as much as possible household distances of 50 feet with a rolling walker, perhaps with moderate assistance. 2.To mobilize a wheelchair at least 150 to 250 feet with modified independence. 3.To transfer from bed to chair to toilet with modified independence. 4.Begin to dress upper and lower body with modified independence. 5.Manage her meals and reduce risk of aspiration with independence. 6.Perform cognitive functioning, medication management with independence. The plan for rehabilitation was communicated with Ms. Louie and her family and they are in agreement. By signing this document, I acknowledge I personally performed a full physical examination on Ms. Júnior field no later than 24 hours after her admission to the inpatient rehabilitation facility and determined that she is able to tolerate the above course of treatment at an intensive level for a reasonable per iod of time. A detailed individualized plan of care for her will be completed by hospital day 4 base d on the preadmission screen, history and physical, and therapy evaluations. BIB Voice ID: [id number]
[2023-11-02] MEDS: LIDOCAINE 4% PATCH TOP SCH (07:33)
--- NOTE | 2023-11-02 09:25 | RAD REPORT ---
EXAMINATION: XR LEFT SHOULDER CLINICAL INDICATION: Female, 63 years old. c/o pain, hx of fall TECHNIQUE: Internal and external AP view radiograph of the left shoulder were obtained. COMPARISON: No prior exam. FINDINGS: No evidence of fracture or dislocation. Normal alignment. No focal bone lesion. Mild AC braden nt degenerative changes. Soft tissues are unremarkable. IMPRESSION: No acute or significant abnormalities. Mild AC joint degenerative changes.
[2023-11-04] MEDS: PANTOPRAZOLE 40MG TABLET PO SCH (16:46)
[2023-11-04] MEDS ORDERED: CALCIUM CARBONATE CHEW 500MG TAB PO PRN (20:00)
[2023-11-04] MEDS: GABAPENTIN 100 MG CAP PO SCH (20:16)
[2023-11-04] MEDS: DULOXETINE 30 MG CAP PO SCH (20:16)
[2023-11-04] MEDS: MAGNES/ALUMIN/SIMET 30ML UCUP PO PRN (20:18)
--- NOTE | 2023-11-05 02:36 | PN ---
Date of Progress Note: 11/04/2023 Time Of Service: 1:35 p.m. Subjective: Ms. Louie is resting comfortably in no significant distress. She has some left-sided inc oordination and weakness that is worse due to her infarct in the right lenticulostriate perforating a rteries territory. She again has no new complaints. No fevers or chills. No myalgias, arthralgias, rash, or weight change. She does report some issues of pain in the shoulder and actually had a shoulder x-ray done on 11/01, the study showed no evidence of fracture or dislocation, there is normal alignment. No bone lesion. Mild acromioclavicular join t degenerative changes were seen. Otherwise unremarkable. Objective: Vital Signs: Blood pressure 148/74, pulse 90, respiratory rate 18, temperature 97, oxyge n saturation 97%. General: Ms. Louie is resting comfortably, in no significant distress. HEENT: Normocephalic and atraumatic. Sclerae are anicteric. Oropharynx moist. Neck: Supple. Neurologic: The patient was somewhat emotional today was crying a bit and somewhat depressed about s ituation because of the dense paresis, which is significant in the left upper more than lower extremi ty. She was started on an antidepressant, which can be helpful. Her features do resemble somewhat p seudobulbar affect where the crying is somewhat difficult to control. Laboratory Studies: White blood cell count 10, hemoglobin 15, platelets 250. Sodium 138, potassium 3.7, chloride 107, carbon dioxide 28, BUN 28 as well, creatinine 0.84, glucose 113, calcium 9.7, magn esium 2.2, albumin 3.5, prealbumin 19.4. Urinalysis, leukocyte esterase 250, rbc's 5-10, trace prote in, otherwise unremarkable. Her C diff toxin is negative. Medications: Tylenol Extra Strength 500 mg every 4 hours, simethicone 30 mL every 6 hours as needed for indigestion, Eliquis 2.5 mg twice daily, aspirin 81 mg daily, Lipitor 80 mg at bedtime. She has Tums 500 mg every 4 hours as needed for indigestion, Cymbalta 30 mg at bedtime, gabapentin 100 mg twi ce daily, lidocaine patch 2 topically 1 to right each shoulder, Prinivil 30 mg daily, magnesium oxide 400 mg twice daily, melatonin 3 mg at bedtime, nicotine patch 14 subcutaneously mg patch daily, Zofr an 4 mg every 4 hours as needed, Protonix 40 mg daily. Progress Made With Physical, Occupational, And Speech Therapy: Today with her physical therapy, she was able to ambulate in parallel bars 8 feet 3 times with contact guard assistance, mobilize a wheelc hair 70 feet with standby assistance, [id number] transfers and parallel bars with minimum assistanc e to contact guard assistance. With her occupational therapy, contact guard assistance for transferr ing wheelchair to toilet and minimum assistance for pulling up pants. With speech, she recalled 3 of 4 unrelated pictures after 3 minutes on first attempt and 4 of 4 after 3 minutes on second attempt. Recalled 4 of 4 objects or items after 5 minutes with straight retrieval method. Assessment: Ms. Louie is making fair progress in terms of her improvement, however, she is significan tly limited by the dense paresis of her left upper extremity and more so than the lower extremity. A lso, there is depression with evidence of pseudobulbar affect and has difficulty with controlling cry ing. 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 Plan: 1.She will have physical, occupational, and speech therapy. We will continue for 3.5 hours, 5 of 7 days. 2.Continue with management of hypertension, address blood sugars. Continue with statin for dyslipid emia. We will continue offloading the left arm, use a rolled towel or a device to reduce tendency fo r hand and finger contraction on the left. She will continue with DVT prophylaxis, continue with davina atonin for insomnia, Senokot for constipation, Tylenol for pain. LB/MODL Voice ID: [id number] Report ID: [id number]
--- NOTE | 2023-11-05 08:23 | P.CNS ---
Date of Consult: 11/05/23 Reason for Consult: Painful toenails Allergies levofloxacin [From Levaquin] Allergy (Verified 10/31/23 22:31) Anaphylaxis Home Medications: Aspirin Chewable [Aspirin Chewable*] 81 mg PO DAILY 10/31/23 Atorvastatin Calcium [Lipitor] 80 mg PO BEDTIME 10/31/23 Clopidogrel Bisulfate [Plavix*] 75 mg PO DAILY 10/31/23 Lidocaine 4% Patch [Lidoderm 5% Patch*] 1 patch TOP DAILY 10/31/23 Nicotine [Nicoderm*] 14 mg TOP DAILY 10/31/23 Polyethylene Glycol 3350 [Miralax] 17 gm PO DAILY 10/31/23 lisinopriL [Lisinopril] 30 mg PO DAILY 10/31/23 - Past Medical/Surgical History Diabetic: No -: HTN -: COPD -: Diverticulitis - Social History Smoking Status: Current every day smoker Alcohol use: Yes CD- Drugs: No Caffeine use: Yes Place of Residence: Home Review of Systems 10-point ROS is otherwise unremarkable Physical Examination Temp Pulse Resp BP Pulse Ox 97.5 F 87 20 138/62 91 11/05/23 06:44 11/05/23 06:44 11/05/23 06:44 11/05/23 06:44 11/05/23 06:44 General: Alert, In no apparent distress, Oriented x3 Cardiovascular: No edema, Abnormal pulses (1/4 dp pulse bilateral, 0/4 pt pulse bilateral) Capillary refill: >2 Seconds Musculoskeletal: No clubbing, No swelling, No contractures, No erythema, No tenderness, No warmth Integumentary: No rashes, No breakdown, No significant lesion, No tenderness/swelling, No erythema, No warmth, No cyanosis, Other (Thickened hypertrophic nails 1-5 left, 2-5 right with subungual debris, avulsed hallux nail right. Absent hair growth bilateral) Neurological: Sensation intact - Problems (1) Tinea unguium Current Visit: Yes Status: Acute (2) Generalized atherosclerosis without gangrene Current Visit: Yes Status: Acute (3) senior living (current) use of anticoagulants Current Visit: Yes Status: Acute Conclusions/Impression: MEchanical debridement of nails at bedside Physician Review: Patient Assessed, Agree with Above Assessment and Plan
--- NOTE | 2023-11-05 19:05 | RAD REPORT ---
EXAM: Head Brain Wo Cont HISTORY: hemmorrhagic conversion COMPARISON: None TECHNIQUE: Multiple contiguous axial images were obtained for a CT of the brain without contrast. Sag ittal and coronal reformats were performed. One or more of the following dose reduction techniques were used: Automated exposure control, adjus tment of the mA and kV according to patient size, and iterative reconstruction. Unless otherwise specified, incidental findings do not require dedicated imaging follow-up. FINDINGS: No evidence of hydrocephalus, intracranial hemorrhage, or extra-axial fluid collection. Hypoattenuating right basal ganglia focus centered on the posterior limb of internal capsule. The calvarium is intact. The visualized paranasal sinuses and mastoid air cells are essentially clear . IMPRESSION: Hypoattenuating right basal ganglia focus centered of the posterior limb of internal capsule, suggest ing a subacute to chronic infarct. No evidence of hemorrhagic conversion.
--- NOTE | 2023-11-05 19:15 | RAD REPORT ---
EXAM: Abdomen 1 View (KUB) HISTORY: [facility] MAIN increased pain, R/O constipation COMPARISON: None FINDINGS: Single view of the abdomen shows a nonspecific, nonobstructive bowel gas pattern. No signif icant stool burden. Ovoid calcific right flank focus measuring 2.1 cm with central lucency, may suggest a gallstone. The bones are unremarkable. IMPRESSION: Nonobstructive bowel gas pattern. No significant stool burden. Probable gallstone.
[2023-11-05] MEDS: GABAPENTIN 300 MG CAP PO SCH (19:35)
[2023-11-05] MEDS: TRAMADOL HCL 50 MG TAB PO PRN (19:35)
[2023-11-05] MEDS: SMZ./TMP. 800/160 MG TABLET PO SCH (19:36)
[2023-11-05] MEDS: MAGNESIUM HYDROXIDE 8% 30 ML PO PRN (19:40)
[2023-11-05] MEDS: HYDROCODONE/APAP 5/325 MG TAB PO PRN (20:28)
[2023-11-05] MEDS: cloNIDine HCL 0.1 MG TAB PO PRN (20:29)
[2023-11-05 20:30] LABS: Absolute Basophils 0.1 K/uL (0-0.5); Absolute Eosinophils 0.1 K/uL (0-0.5); Absolute Lymphocytes (CBC) 1.6 K/uL (0.7-4.9); Absolute Monocytes 1.2 K/uL (0.1-1.3); Absolute Neutrophil 12.1 K/uL (1.8-8.0); Basophils % 0.5 % (0-1.3); Eosinophils % 0.6 % (0-4.4); Hematocrit 44.5 % (36.0-45.0); Hemoglobin 14.6 g/dL (12.0-15.0); Lymphocytes % 10.8 % (15.3-44.8); MCH 29.8 pg (27.0-35.0); MCHC 32.8 g/dL (32.0-36.0); MCV 90.9 fL (80-100); MPV 8.7 fL (7.6-11.3); Monocytes % 7.7 % (3.3-12.3); Neutrophils % 80.4 % (41.7-73.7); Platelets 261 thou/uL (152-406); RBC Red Blood Cell Count 4.89 M/uL (3.86-4.86); Red Cell Distribution Width 14.1 % (12.1-15.2)
[2023-11-05 20:47] LABS: Albumin 3.6 g/dL (3.4-5.0); Albumin/Globulin Ratio 0.8 (1.1-1.8); Anion Gap 8.5 mEq/L (5.0-15.0); Globulin 4.8 g/dL (2.3-3.5); Potassium 4.5 mEq/L (3.5-5.1); Protein, Total 8.4 g/dL (6.4-8.2)
[2023-11-05] MEDS: HYDROCODONE/APAP 5/325 MG TAB PO ONE (23:16)
--- NOTE | 2023-11-06 00:01 | RAD REPORT ---
EXAM DESCRIPTION: CT ABDOMEN PELVIS WITHOUT IV CONTRAST 11/05/2023 11:48 PM CDT CLINICAL HISTORY: 63 years, Female, Abdominal pain. COMPARISON: XR Abdomen 11/05/2023, previous CT scan performed 08/05/2019. PROCEDURE: Noncontrast images of the abdomen and pelvis were performed from the lung bases to the ischial tubero sities. In addition multiplanar reformats in the coronal and sagittal plane were obtained and reviewed. An individualized dose optimization technique, Automated Exposure Control, was utilized for the perfo rmed procedure. FINDINGS: The lack of IV contrast limits evaluation of solid organs, subtle lesions cannot be exclude d. Lung bases: The lung bases demonstrate to be clear. Calcified granuloma within the inferior lingual s egment, posterior segment bilateral lower lobes and azygos esophageal recess. Coronary artery calcifications. Liver: Grossly the unopacified liver demonstrates to be normal, no focal lesions are identified. Calc ified granulomas Gallbladder: The gallbladder demonstrates presence of layering high density structures corresponding to cholelithiasis. No significant inflammatory changes and/or biliary duct dilatation. Adrenal glands: Grossly the unopacified adrenal glands demonstrate to be normal. Pancreas: Grossly the unopacified pancreas demonstrate to be normal Spleen: The spleen demonstrate to be normal. Calcified granulomas Kidneys: Grossly the unopacified kidneys demonstrate to be within normal limits. Again there is ident ified presence of right extrarenal pelvis. No definitive evidence for calculus within the right ureter. There is no evidence for nephrolithiasis and/or hydronephrosis. GI: Grossly the unopacified stomach, small bowel and large bowel demonstrate to be within normal limi ts. No evidence for bowel dilatation and/or free air. The appendix was not visualized. The large bowel demonstrates presence of scattered diffuse diverticulosis. : The urinary bladder demonstrate to be unremarkable. Genitalia: The uterus demonstrate to be within normal limits. There are normal adnexal structures. Abdominal aorta: The aorta demonstrate demonstrated presence of atherosclerotic disease extending int o the aortic bifurcation and iliac arteries. Retroperitoneum: There is no retroperitoneal lymphadenopathy. There is no evidence for ascites and/or abnormal fluid collections. Bones: The bones demonstrate to be demineralized. The lumbar spine demonstrate minimal degenerative c hanges at L3-S1. Soft tissues: There is a small anterior umbilical hernia containing omentum. IMPRESSION: No evidence for nephrolithiasis and/or hydronephrosis. Cholelithiasis. Colonic diverticulosis without evidence of acute diverticulitis. Small anterior umbilical hernia containing omentum. Atherosclerotic disease of the aorta. Old granulomatous disease. Electronically signed by: Antonio Venegas MD 11/05/2023 11:56 PM CDT RP Due to temporary technical issues with the PACS/[employer] reporting system, reports are being pearl d by the in-house radiologist without review as a courtesy to ensure prompt reporting the interpreting radiologist is fully responsible for the content of the report. Transcribed Date/Time: 11/06/2023 12:00 AM
--- NOTE | 2023-11-06 04:48 | PN ---
Date of Progress Note: 11/05/2023 Time Of Service: 1:30 a.m. Subjective: Ms. Louie is sitting in a chair comfortably in no acute distress. She still has signific ant left upper extremity weakness that is dense. The left arm is held in a sling. She did report so me left shoulder pain for which she has lidocaine patch in place. She is still somewhat depressed ab out her recovery after the stroke and is worried about when she will be able to do functional activit ies. Objective: No fevers or chills. She does have myalgias and arthralgias in the left upper and lower extremity where there is dense paresis in that left arm and decreased sensation to light touch temper ature. She did have again significant pain in the abdominal region today. A KUB study was done, it showed no obstructive bowel gas pattern, no significant stool burden, and there was probable gallston e identified. The stone measured 2.1 cm with central lucency. A CT scan also overhead was done sinc e the patient did have this reported potential worsening weakness on the left side, although on the l eft arm has really 0 movement, left leg potentially some more weakness noted per the patient. It is noted that the therapist did not necessarily see any worsening weakness. The CT scan of her head wit hout contrast showed hypoattenuation in the right basal ganglia focus centered on the posterior limb of internal capsule. It is consistent with a subacute to chronic stroke. No evidence of hemorrhagic conversion seen. She also has a CT scan of the abdomen and pelvis ordered to rule out cholecystitis . Physical Examination: Vital Signs: Blood pressure /74, pulse 82, respiratory rate of 20, temperature 97.5, oxyge n saturation up to 94% on oxygen now L. General: Ms. Louie is in mild distress due to abdominal pain, potentially related to cholecystitis. CT scan of the abdomen and pelvis is pending. She does not have constipation per KUB. There is no a bnormal bowel gas pattern identified. She will have some [place], gabapentin, tramadol also for pain. The rest of her exam as noted dense paresis, left upper extremity; right upper and lower extremity f ully without difficulty; left lower extremity 3/5 proximally and distally. Laboratory Studies: Today, white blood cell count increased to 15.1. Her neutrophils 80.4 that incr eased from 64.2, and white blood cell was 10 on 10/31, now 15 on 11/04. Hemoglobin is 14.6, hematocr it 44.5. Today, her sodium is 134, potassium 4.5, chloride 102, carbon dioxide 28, BUN 23, creatinin e slightly elevated at 1.07, improved from 0.84 on the , glucose 128, calcium 9.7, total bilirubi n 1.9, AST 14, ALT 26, alkaline phosphatase 80, total protein 8.4, albumin 3.6, globulin 4.8, albumin -to-globulin ratio 0.8. Consultations: She was seen by Dr. Devin Gonsales on the Podiatry Service who did debridement of the t oenails at the bedside. Physical, Occupational, And Speech Therapy: Today with physical therapy, qmxpsg-ux-tiz transfers wit h minimum assistance, lir-ev-yypmm transfers with a rolling walker with minimum assistance. The bill ent did tell therapist she felt very weak and worn out today. She did work on toilet transfers, mini mum assistance, prs-tr-ursqg transfers with wheelchair and rolling walker with contact guard assistan ce. With speech, she used short-term memory to recall tasks in order for 4 unrelated pictures. She recalled 3 of 5 after 5 minutes on the first attempt and 4 of 4 after 5 minutes on a second attempt. Assessment: Ms. Louie is a 63-year-old patient with some significant abdominal pain that is now impro ving slightly with medications. An x-ray KUB suggested possible gallstones and CT scan of the abdome n and pelvis to rule out cholecystitis is ordered. KUB showed no bowel obstruction. She does have t he infarct in the right lateral ventricular straight area with dense paresis in left upper and lower extremities. Her additional comorbid condition includes dyslipidemia, GE reflux. She has hypertensi on, tobacco dependency, and now on trimethoprim sulfamethoxazole. It is noted that the urine culture from the did show Escherichia coli, which was pansensitive and she is on Bactrim DS twice daily for 5 days. She is allergic to levofloxacin. It should be noted that urine did show 250 margot rase, 5-10 red blood cells, trace of protein. Comorbidities That Are Impacting Rehabilitation: Potential for urinary tract infection is there. Sh brittney is on antibiotics. Also, potential for a cholecystitis and CT scan of the abdomen and pelvis done and GI or General Surgery Service will be consulted depending on the results of the CT scan of the ab domen and pelvis. Otherwise, she will continue with physical, occupational and speech therapy as martha guerrero. ABELINO/SONAL Voice ID: [id number] Report ID: [id number]
[2023-11-06] MEDS ORDERED: NA CHLORIDE 0.9% 1,000 ML ONE (05:47)
[2023-11-06] MEDS: NA CHLORIDE 0.9% 500 ML IV ONE (05:48)
[2023-11-06] MEDS: NA CHLORIDE 0.9% 1,000 ML IV SCH ×2 (06:21→12:57)
[2023-11-06 06:30] LABS: Absolute Basophils 0.1 K/uL (0-0.5); Absolute Eosinophils 0.1 K/uL (0-0.5); Absolute Lymphocytes (CBC) 2.7 K/uL (0.7-4.9); Absolute Monocytes 1.4 K/uL (0.1-1.3); Absolute Neutrophil 8.9 K/uL (1.8-8.0); Basophils % 0.6 % (0-1.3); Hematocrit 38.7 % (36.0-45.0); Hemoglobin 12.9 g/dL (12.0-15.0); Lymphocytes % 20.4 % (15.3-44.8); MCH 30.3 pg (27.0-35.0); MCHC 33.5 g/dL (32.0-36.0); MCV 90.6 fL (80-100); MPV 8.4 fL (7.6-11.3); Monocytes % 10.7 % (3.3-12.3); Neutrophils % 67.3 % (41.7-73.7); Nucleated Red Blood Cells % 0.1 % (0-0); Platelets 269 thou/uL (152-406); RBC Red Blood Cell Count 4.27 M/uL (3.86-4.86); Red Cell Distribution Width 13.9 % (12.1-15.2)
[2023-11-06] MEDS: BISACODYL 10 MG RECTAL SUPP PR PRN (14:03)
[2023-11-06] MEDS: SIMETHICONE 80 MG CHEWABLE TAB PO PRN (14:04)
--- NOTE | 2023-11-06 16:24 | RAD REPORT ---
EXAMINATION: Hip Left 2 View CLINICAL INDICATION: Female, 63 years old. [facility] MAIN increased pain TECHNIQUE: 2 view radiograph of the left hip were obtained. COMPARISON: No prior exam. FINDINGS: No evidence of fracture or dislocation. Normal alignment. Mild left hip joint degenerative changes with marginal spurring. No focal bone lesion. Soft tissues are unremarkable. IMPRESSION: No acute osseous abnormalities of the left hip. Moderate degenerative changes.
[2023-11-06] MEDS: AMOX/K CLAV 875 MG TAB PO SCH (17:13)
[2023-11-07 06:01] LABS: Absolute Eosinophils 0.1 K/uL (0-0.5); Absolute Lymphocytes (CBC) 1.9 K/uL (0.7-4.9); Absolute Monocytes 1.1 K/uL (0.1-1.3); Absolute Neutrophil 7.4 K/uL (1.8-8.0); Basophils % 0.4 % (0-1.3); Eosinophils % 1.4 % (0-4.4); Hemoglobin 13.1 g/dL (12.0-15.0); Lymphocytes % 17.8 % (15.3-44.8); MCH 30.5 pg (27.0-35.0); MCHC 33.6 g/dL (32.0-36.0); MCV 90.9 fL (80-100); MPV 8.5 fL (7.6-11.3); Monocytes % 10.3 % (3.3-12.3); Neutrophils % 70.1 % (41.7-73.7); Nucleated Red Blood Cells % 0.1 % (0-0); Platelets 232 thou/uL (152-406); RBC Red Blood Cell Count 4.29 M/uL (3.86-4.86); Red Cell Distribution Width 14.1 % (12.1-15.2)
[2023-11-07 06:21] LABS: Albumin 2.9 g/dL (3.4-5.0); Anion Gap 8.6 mEq/L (5.0-15.0); Magnesium 2.6 mg/dL (1.6-2.4); Potassium 4.6 mEq/L (3.5-5.1); Prealbumin 14.7 mg/dL (20-40)
[2023-11-07] MEDS: HYDROCODONE/APAP 10/325 TAB PO PRN (08:42)
[2023-11-07] MEDS: ENSURE ENLIVE 237 ML CAN PO SCH (19:16)
--- NOTE | 2023-11-07 22:38 | PN ---
Date of Progress Note: 11/07/2023 Time Of Service: 1:25 p.m. Subjective: Ms. Louie is resting comfortably in a chair. She is in no significant distress. She jeffries s have significant left-sided weakness, however, she is able to extend the left forearm and is receiv ing some improvement in strength and is against mild resistance especially when held with gravity's e ffect eliminated. She reports some issue with constipation, upper across the abdominal area mild reane n. She did have a KUB study done yesterday. The study showed a nonobstructive bowel gas pattern. S he had no significant stool burden and did identify a possible gallstone. A CT scan of the abdomen a nd pelvis was also done and that study showed no evidence of nephrolithiasis, hydronephrosis. There was cholelithiasis, colonic diverticulosis without evidence of acute diverticulitis. There was a sma ll anterior umbilical hernia containing omentum and arthrosclerotic disease of the aorta. Also, old granulomatous disease. Earlier today, due to some pain in the left hip where she had a fall after th e stroke affecting the left side, 2 views were done. The study showed no acute osseous abnormalities in the left hip. There were moderate degenerative changes. The posterior left hip area has an area of mild tenderness and swelling, possibly related to her fall that impacted the left shoulder and th e left buttock and hip region around the time of her stroke. Objective: Vital Signs: Blood pressure 122/64, pulse of 72, respiratory rate 17, temperature 97.9 o xygen saturation 95%. Neuro: Again, Ms. Louie is doing therapy. She notes some ursm-wl-bctxudqo pain in the left lateral h ip area and mild pain in the left shoulder where she has the significant weakness from her stroke. I n terms of strength, she has around 2-3 in the left triceps, deltoid 0, wrist flexion and extension 0 , lower extremity around 2-3 proximally and distally, otherwise unchanged in terms of strength. Laboratory Studies: White blood cell count 10.6, hemoglobin 13.1, platelets 232. Sodium 136, potass ium 4.6, chloride 104, carbon dioxide 28, BUN 30, creatinine 1.07, glucose 93, calcium 9.2. Magnesiu m 2.6. Albumin 2.9, prealbumin decreased from 19.4 on the to 14.7 on the . Progress Made With Physical, Occupational, And Speech Therapy: With physical therapy today, she had moderate assistance while transferring, dsz-id-gzlke transfer from wheelchair and with Plinth table. Transferring was at moderate assistance level. Jvp-eh-ujmjr training, she did 5 repetitions. She w orked on left upper extremity, shoulder extension and abduction exercises. With occupational therapy , she was at moderate assistance with showers, able to wash all body parts except buttocks area due t o poor trunk control and fatigue using a long-handle sponge. Performs upper body dressing, minimum a ssistance, again limited by some pain in the left shoulder. Tolerated 5 minutes of weightbearing str ategies in left hand while seated in upright position. With speech, she recalled detailed picture se en after 5 minute increments with 90% accuracy and minimum assistance. Organizational thinking, used to name members of an abstract category with 100% accuracy and moderate verbal cues. Assessment: Ms. Louie is a 63-year-old patient admitted to the rehabilitation unit with a right later al lenticulostriate infarct, left paresis dense in the upper extremities, less so in the lower extrem ity on the left. She has decreased mobility, decreased physical functioning. No pain in the left sh oulder. She is on Augmentin. E coli urinary tract infection. She has aspirin for stroke risk reduc tion. Eliquis for deep vein thrombosis risk reduction, Lipitor for dyslipidemia. She is on clonidin e as needed for systolic blood pressure greater than 170. She has duloxetine for neuropathic pain an d depression, gabapentin for neuropathic pain, lisinopril for hypertension, melatonin for insomnia. Nicotine patch for her tobacco dependency. She has simethicone for gas pain, Zofran for nausea, Prot vincent for GE reflux, tramadol as scheduled for pain plus p.r.n. given. Note, she will continue physic al, occupational, and speech therapy in terms of her plan and continue medications as listed for eliza rbid conditions. LB/MODL Voice ID: [id number] Report ID: [id number]
[2023-11-08] MEDS: TRAMADOL HCL 50 MG TAB PO SCH (07:43)
--- NOTE | 2023-11-08 23:12 | PN ---
Date of Progress Note: 11/08/2023 Time Of Service: 1:30 p.m. Subjective: Ms. Louie is lying in bed in between therapy sessions. She says her left arm has strengt h returning. She is able to extend the arm and grasp objects with the left arm, which is the paretic arm after her right lenticulostriate perforating artery stroke. Review of Systems: Mild myalgias and arthralgias. Some pain in the left shoulder and the left lateral hip region where she fell, but pain is not worse. Physical Examination: Vital Signs: Blood pressure is 148/79, pulse 69, respiratory rate 18, temperature 97.2, oxygen satur ation 95% on room air. Weight 246 pounds, height 5 feet 7 inches, BMI 38.5. General: Ms. Louie is resting in bed. Neuro: She does have left nasolabial fold decrease and weakness in the left upper extremity around 2 /5 proximally and distally. She is improving strength, however. Her left lower extremity is 3+, rig ht side 5/5 strength proximally and distally. Laboratory Studies: Complete blood count with differential is completely normal now. Hemoglobin 10. 6, hematocrit 30.1. Sodium 136, potassium 4.6, chloride 104, carbon dioxide 28, creatinine 1.07. Ma gnesium 2.6. Albumin 2.9, prealbumin 14.7 with slightly decrease from 19.4. X-ray/imaging: No new x-rays or imaging. Medications: Medications have been reviewed and are unchanged except she has tramadol scheduled in t morning, 50 mg to help with her pain. Progress Made With Physical, Occupational, And Speech Therapy: With physical therapy today, she was able to ambulate 8 feet 6 times in parallel bars with contact guard assistance. Mqbwoc-ce-hzo transf ers done with minimum assistance. Cai-pb-mzfvf transfers done with contact guard assistance. Regard ing her occupational therapy, she did have oxygen desaturation while working with a therapist down to 84, worked on deep breathing techniques and with oxygen up to about 3 L, she was increased to 93%, b ut decreased back to about 86% as she is not ventilating well. The patient is, however, instructed a nd was assisted in using the incentive spirometer to improve her respiratory capacity. With speech t nadir, she demonstrated use of organizational thinking skills through sequencing 4 pieces of informati on with 100% accuracy. She continued to improve her short-term recall and safety awareness. Assessment: Ms. Louie is a 63-year-old patient with an infarct in the left lateral lenticulostriate p erforating arteries and dense paresis of the left upper extremity, less so on the left face and also significant weakness in the left leg. She has sensory loss on the left compared to the right side. She has comorbid pain; GE reflux; tobacco dependency, mitigated by Nicotine patch; melatonin for inso mnia; hypertension addressed with Prinivil and clonidine as needed; gabapentin for pain; Lipitor for dyslipidemia; aspirin for stroke risk reduction; Eliquis for DVT risk reduction; Exchange available for pain; and she is continued on Augmentin for UTI from 11/05 to 11/11 and that is 875/125 twice daily. Comorbidities That Are Impacting Rehabilitation: The significant weakness in the left lower extremit y is improving, but she is still high risk of falling as she has done after the stroke impacting the left side. There is no fracture. Imaging was negative, but there is swelling and hematoma in the ar ea. Pain patch is applied. There is still somewhat of a limiting factor for her therapy to improve. LB/MODL Voice ID: [id number] Report ID: [id number]
[2023-11-11] MEDS: lisinopriL 20 MG TAB PO SCH (12:37)
--- NOTE | 2023-11-11 15:52 | RAD REPORT ---
Exam:Hip Left 2 View HISTORY: Left hip pain FINDINGS: No fracture or dislocation seen If the patient continues to have symptoms to suggest an occult fracture then MRI would be recommended .
--- NOTE | 2023-11-11 15:56 | RAD REPORT ---
Examination: Sacrum and coccyx Clinical history back pain FINDINGS: No fracture seen.
[2023-11-11] MEDS: TRAMADOL HCL 50 MG TAB PO SCH (19:45)
--- NOTE | 2023-11-11 23:33 | PN ---
Date of Progress Note: 11/11/2023 Time Of Service: 1:25 p.m. Subjective: Ms. Louie is sitting in the chair beside her bed between therapy sessions. She has no ne w movement in the left upper extremity where stroke has affected her more densely. There is also lef t facial weakness and left leg weakness, but that is stronger than the left arm. It is noted that la ter in the day, as the patient presents to shower, she did slide down hitting the buttocks region. X -ray of the sacrum and coccyx and hip were done. The study showed no fracture seen. She had x-ray o f the hip on the left. No fracture or dislocation identified. Objective: Again, some mild pain in the left hip where there is a fall in the buttocks area. Again, no fractures identified. Otherwise mild myalgias, arthralgias. No rash, headache, weight change, o r active psychiatric issues. She denies any significant depressive symptoms. Physical Examination: Vital Signs: Blood pressure 144/67, pulse 80, respiratory rate 16, temperature 97.6, oxygen saturati on 97%. General: Ms. Louie again is sitting comfortably in a chair. HEENT: She is normocephalic, atraumatic. Sclerae anicteric. Oropharynx pink and moist. Neck: Supple. Chest: Clear. Extremities: Left upper extremity very dense paresis in the arm, very little proximal movement in th e wrist and finger, almost no movement noted. Lower extremity on the left at 2 to 3/5. Left nasolab ial fold decrease as well. Laboratory Studies: No new laboratory studies except blood sugars yesterday 158. X-ray imaging have been mentioned. Medications: Medications have been reviewed. Currently, the Prinivil is at 30 mg daily and that is being held for systolic blood pressure less than 130. She does have tramadol in place 50 mg twice da benito scheduled. Otherwise, medications are continued unchanged. Progress Made With Physical, Occupational, And Speech Therapy: Today with physical therapy, she was able to ambulate in the parallel bars 3 sets of 8 feet forward and then another set backwards. Ambul ated with a cane 8 feet as well. She in terms of occupational therapy, wheelchair and shower transfe r with minimum assistance. Showers done with minimum assistance as well. With speech, short-term me messi that was worked on. She required 2 attempts on each set of pictures to recall 2 of 3 and then l ater on 3/3 were recalled. Working memory for 3 units of information, recall with 90% accuracy. Assessment: Ms. Louie is a 63-year-old patient, making fair progress with recovery from her right lat eral antecubital stride perforating artery stroke with dense paresis of left upper extremity more so than the lower extremity and the left face. She has dysarthria, dysphagia, and pain. She does have a recent sliding fall and to the left hip, no fracture. Coccyx region shows no fracture as well. Sh brittney has tobacco dependency, on nicotine patch. She has hypertension, neuropathic pain, which is mitiga tasneem by multiple medications including gabapentin and duloxetine, Tums for GE reflux, Lipitor for dysl ipidemia, aspirin for stroke risk reduction, Eliquis for DVT risk reduction, Tylenol and [place] for pa in. She is continuing with Augmentin for her UTI symptoms. Comorbidities That Are Impacting Rehabilitation: She did have sliding down into the shower. The pat ashwin was told of course that the left upper extremity is unable to break her fall because of dense we akness and she has to be very careful at all times and plan every move as she is at high risk of fall s and injury. ABELINO/SONAL Voice ID: [id number] Report ID: [id number]
--- NOTE | 2023-11-13 | PN ---
Date of Progress Note: 11/12/2023 Time Of Service: 1:30 p.m. Subjective: Ms. Louie is resting in chair beside bed in between therapy sessions. She does report no significant improvement in left-sided weakness that is the arm which is densely paretic. She does h ave some pain in the left lateral hip area where she fell after she had her stroke. She had another slide down while in the shower and next to the bed due to her not being able to hold herself in posit ion with the right arm which is the strong arm. She did say she impacted the right hip area, but the re is no ongoing pain in that area. The lidocaine patch is in the left hip area which has a mild hem atoma measuring about 2 inches in diameter and that is beneath the skin with no break in the skin not iced. Objective: Again, mild pain in the left hip and some pain in the left shoulder, right hip, and other hurtado no fevers, chills. No other complaints, although some mild depression is setting in. Physical Examination: Vital Signs: Blood pressure 154/68, pulse 77, respiratory rate 17, temperature 97.6, oxygen saturati on 92%. General: Ms. Louie again is resting in bed. HEENT: She is normocephalic, atraumatic. Sclerae anicteric. Oropharynx pink, moist. Neck: Supple. Chest: Clear. Extremities: She has decrease of left nasolabial fold, dense paresis of left upper extremity and rig ht lower extremity are without deficits. Laboratory Studies: No new laboratory studies. X-ray/imaging: No new x-rays or imaging except on yesterday she had a sacrum and coccyx x-ray which showed no fractures. Progress Made With Physical, Occupational, And Speech Therapy: Today with physical therapy, she was able to ambulate 25 feet and 50 feet with a rolling walker with lower extremity assistance. Mobilize d a wheelchair with bilateral lower extremities, covering 25 feet, [id number] exercises done. With occupational therapy, she required partial assistance for toilet hygiene and pull of her pants. Sup ine-to-sit transfers done with contact guard assistance to minimum assistance. With speech, working memory use for 4 units of information with 70% accuracy. Organizational thinking skills during conve rgent and divergent naming task with 100% accuracy and minimum assistance. Ms. Louie is making good progress with her physical and occupational therapy along with speech therapy . She has dense paresis of left lower extremity, making it difficult for her to return to a prior le dave of functioning easily. She has had 3 falls since the stroke and is likely to fall again unless s he is very much concentrating and how to transfer, how to mobilize, and she gets help from family and they are encouraged on a daily basis to participate for them to be able to train properly and to hel p her as she goes back home which is this Saturday coming, today Saturday. Assessment: Ms. 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 She has dysarthria and dysphagia. She did fall and hit left hip, but no fracture, but there is some pain there and in the coccyx region mild pain as well. 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 Plan: 1.Continue with physical, occupational, and speech therapy. 2.She will continue with the list of medications for comorbid conditions, which include Tums for ref lux, Lipitor for dyslipidemia, aspirin for stroke risk reduction, Eliquis for DVT risk reduction, Nor co for pain in addition to tramadol, Mylicon for gas pain, Zofran for nausea, melatonin for insomnia, magnesium oxide for muscle spasms, Prinivil for hypertension. ABELINO/SONAL Voice ID: [id number] Report ID: [id number]
[2023-11-14 06:33] LABS: Absolute Eosinophils 0.2 K/uL (0-0.5); Absolute Lymphocytes (CBC) 2.9 K/uL (0.7-4.9); Absolute Monocytes 0.9 K/uL (0.1-1.3); Absolute Neutrophil 6.4 K/uL (1.8-8.0); Basophils % 0.3 % (0-1.3); Eosinophils % 2.1 % (0-4.4); Hematocrit 39.3 % (36.0-45.0); Hemoglobin 12.8 g/dL (12.0-15.0); Lymphocytes % 27.7 % (15.3-44.8); MCH 29.9 pg (27.0-35.0); MCHC 32.7 g/dL (32.0-36.0); MCV 91.3 fL (80-100); MPV 8.2 fL (7.6-11.3); Monocytes % 8.3 % (3.3-12.3); Neutrophils % 61.6 % (41.7-73.7); Platelets 257 thou/uL (152-406); Red Cell Distribution Width 14.1 % (12.1-15.2)
[2023-11-14 06:55] LABS: Albumin 2.9 g/dL (3.4-5.0); Anion Gap 4.3 mEq/L (5.0-15.0); Magnesium 2.1 mg/dL (1.6-2.4); Potassium 4.3 mEq/L (3.5-5.1); Prealbumin 16.1 mg/dL (20-40)
--- NOTE | 2023-11-14 11:00 | PN ---
Date of Progress Note: 11/13/2023 Time Of Service: 1:25 p.m. Subjective: Ms. Louie is resting in bed. She said her left arm shows no improvement, although very m ildly if any improvement in strength, but she is working hard, barely able to very slightly move the index finger. No significant wrist movement. Left proximal upper extremity also significantly weak. The left nasolabial fold also is decreased. Objective: Mild pain in the left hip. She does have a pain patch on there. She denies any addition al sliding of bed and seek assistance when trying to mobilize and to use a restroom or be out of bed. Of course, staff has been working with gait belt and rolling walker, wheelchair __. Physical Examination: Vital Signs: Blood pressure 101/83, down to 99/57 earlier, pulse 82 down to 73, temperature 97.2, ox ygen saturation 93%. Respiratory rate is 16. General: Ms. Louie again is resting in bed. She has no new findings. Has decrease of left nasolabia l fold. Extremities: Paresis of left upper extremity more than left lower extremity. Laboratory Studies: No new laboratory studies. Imaging: No new x-rays or imaging. Progress Made With Physical, Occupational, And Speech Therapy: With physical therapy today, she did sit to stand training and wheelchair, but partial improvement. Her gait, she was up and down stairs, 4 steps, backwards using a right handrail. She ambulated with a rolling walker 60 feet a nd left lower extremity. Improved left lower extremity step length and no instances of buckling note d. Again, with a rolling walker 60 feet with assistance moving the left lower extremity. With occup ational therapy, left hip flexion and left knee extension exercises. [id number] transfe r with contact guard assistance. Out of bed required partial assistance. Sit to supine, also partia l assistance. With her speech, short-term recall and attention provided to recalling unrelated pictu res. Recall 1 set of 2 unrelated pictures after 5 minutes without cues. Organizational thinking ski lls utilized during tasks requiring her to assess different apps on the phone. Assessment: Ms. Louie in a 63-year-old patient with infarction of right lateral lenticulostriate brian ry with dense paresis of the left upper extremity more than the lower extremity, also some weakness o f face with dysarthria and dysphagia. Her comorbidities include dyslipidemia, pain in the left hip a fter a fall, depression, anxiety, neuropathic pain, insomnia, chronic tobacco use, GE reflux. Plan: 1.She will continue with tramadol and Tylenol as needed for pain, Mylicon for gas pain, Protonix for GE reflux, Zofran for nausea, Ensure Enlive for decrease in protein and improve the nutritional stat us. Nicotine patch for tobacco withdrawal. Melatonin for insomnia. Magnesium oxide for muscle spas ms. Prinivil for hypertension. Gabapentin and duloxetine for neuropathic pain. both for anxiety and depression. dyslipidemia, aspirin for stroke risk reduction, and Eliquis 2.5 mg twice a day for DVT risk reduction. 2.She will continue with physical, occupational, and speech therapy for 3.5 hours, 5 of 7 days. ABELINO/SONAL Voice ID: [id number] Report ID: [id number]
--- NOTE | 2023-11-15 00:18 | PN ---
Date of Progress Note: 11/14/2023 Time Of Service: 1:35 p.m. Subjective: Ms. Louie is doing well. No new complaints. Still has significant weakness in the left proximal and distal upper extremity and decreased nasolabial fold on the left. No new findings there . Objective: No significant myalgias, arthralgias. No rash. Some pain in the left hip region and rig ht. Physical Examination: Vital Signs: Blood pressure is 144/78, pulse 78, respiratory rate 18, temperature 97.2, oxygen satur ation 95%. Neurologic: Ms. Louie has no new findings. She still has some significant left upper extremity proxi mal-distal weakness from her stroke and left lower extremity is stronger, but otherwise no new findin gs on examination. Laboratory Studies: Her complete blood count with differential is completely normal. Her basic meta bolic panel: Sodium, chloride, potassium, carbon dioxide all unremarkable. BUN slightly elevated to 28 and creatinine 0.91, which is of course normal. Glucose 111. Calcium 9.6, magnesium 2.1. Preal bumin 16.1, albumin 2.9. X-rays/imaging: No new x-rays or imaging. Progress Made With Physical, Occupational, And Speech Therapy: Today, with her physical therapy, galen ilized wheelchair 150 feet, standby assistance with a rolling walker. Left upper extremity Christopher wrapp ed, was able to maintain left hand conductor freight on the rolling walker. She will do 60 feet at contact guard. Regarding occupational therapy, contact guard assistance for [id number] transfer, use of grab bar s, wheelchair to edge of bed transfer. Minimum assistance for bathing, wash and dry left upper extre mity and buttocks required. She was fatigued after the shower. Required minimum assistance for left upper extremity, assistance in terms of dressing and partial assist for lower body dressing. Regard ing speech, improved speed of processing and word retrieval. She named members of 15 categories and average of 11.7 members per category. Assessment: Ms. Louie is a 63-year-old patient in the rehabilitation unit with a stroke affecting the right lateral lenticulostriate arteries with dense paresis of the left upper extremity, also some we akness of the face and less so of the leg, has dysarthria and dysphagia. She has dyslipidemia, insom vince, neuropathic pain, depression, anxiety, chronic tobacco use, gastroesophageal reflux. Plan: 1.She will continue with physical, occupational, and speech therapy 3.5 hours, 5 of 7 days. 2.Continue with her list of comorbid condition medications, including the Eliquis 2.5 mg twice daily for DVT prophylaxis; simethicone for gas; [place] for pain; Maalox for reflux; Lipitor for dyslipidemi a; duloxetine for depression; gabapentin for neuropathic pain; Prinivil for blood pressure management ; melatonin for insomnia; nicotine patch for tobacco withdrawal symptoms; Zofran for nausea. ABELINO/SONAL Voice ID: [id number] Report ID: [id number]
--- NOTE | 2023-11-15 13:34 | P.RH.PN ---
Estimated Length of Stay: 16 Expected Discharge Date: 11/16/23 Discharge Disposition Plan: Home Family Support: Yes Group Home Goal: Mobility, Transfers, Self Care Vital Signs: Last Vital Signs Temp 97.0 F 11/15/23 08:00 Pulse 66 11/15/23 08:00 Resp 18 11/15/23 10:30 BP 118/59 L 11/15/23 08:00 Pulse Ox 95 11/15/23 10:30 Laboratory: Laboratory Last Values WBC 10.40 thou/uL (4.3-10.9) 11/14/23 05:22 RBC 4.30 M/uL (3.86-4.86) 11/14/23 05:22 Hgb 12.8 g/dL (12.0-15.0) 11/14/23 05:22 Hct 39.3 % (36.0-45.0) 11/14/23 05:22 MCV 91.3 fL (80-100) 11/14/23 05:22 MCH 29.9 pg (27.0-35.0) 11/14/23 05:22 MCHC 32.7 g/dL (32.0-36.0) 11/14/23 05:22 RDW 14.1 % (12.1-15.2) 11/14/23 05:22 Plt Count 257 thou/uL (152-406) 11/14/23 05:22 MPV 8.2 fL (7.6-11.3) 11/14/23 05:22 Plt Distribution Width Cancelled 11/05/23 20:07 Absolute Nucleated RBC Cancelled 11/05/23 20:07 Neutrophils % 61.6 % (41.7-73.7) 11/14/23 05:22 Lymphocytes % 27.7 % (15.3-44.8) 11/14/23 05:22 Monocytes % 8.3 % (3.3-12.3) 11/14/23 05:22 Eosinophils % 2.1 % (0-4.4) 11/14/23 05:22 Basophils % 0.3 % (0-1.3) 11/14/23 05:22 Nucleated RBC % Cancelled 11/05/23 20:07 Absolute Neutrophils 6.4 K/uL (1.8-8.0) 11/14/23 05:22 Absolute Lymphocytes 2.9 K/uL (0.7-4.9) 11/14/23 05:22 Absolute Monocytes 0.9 K/uL (0.1-1.3) 11/14/23 05:22 Absolute Eosinophils 0.2 K/uL (0-0.5) 11/14/23 05:22 Absolute Basophils 0.0 K/uL (0-0.5) 11/14/23 05:22 Diff Path Review Cancelled 11/05/23 20:07 Sodium 138 mEq/L (136-145) 11/14/23 05:22 Potassium 4.3 mEq/L (3.5-5.1) 11/14/23 05:22 Chloride 106 mEq/L (98-107) 11/14/23 05:22 Carbon Dioxide 32 mEq/L (21-32) 11/14/23 05:22 Anion Gap 4.3 mEq/L (5.0-15.0) L 11/14/23 05:22 BUN 28 mg/dL (7-18) H 11/14/23 05:22 Creatinine 0.91 mg/dL (0.55-1.02) 11/14/23 05:22 Est GFR (CKD-EPI) 71 ml/min (=/>90) L 11/14/23 05:22 Glucose 111 mg/dL (74-106) H 11/14/23 05:22 POC Glucose 158 mg/dL (65-120) H 11/10/23 19:21 Calcium 9.6 mg/dL (8.5-10.1) 11/14/23 05:22 Magnesium 2.1 mg/dL (1.6-2.4) 11/14/23 05:22 Total Bilirubin 1.0 mg/dL (0.2-1.0) 11/05/23 20:20 AST 14 U/L (15-37) L 11/05/23 20:20 ALT 26 U/L (13-56) 11/05/23 20:20 Alkaline Phosphatase 80 U/L (45-117) 11/05/23 20:20 Serum Total Protein 8.4 g/dL (6.4-8.2) H 11/05/23 20:20 Albumin 2.9 g/dL (3.4-5.0) L 11/14/23 05:22 Globulin 4.8 g/dL (2.3-3.5) H 11/05/23 20:20 Albumin/Globulin Ratio 0.8 (1.1-1.8) L 11/05/23 20:20 Prealbumin 16.1 mg/dL (20-40) L 11/14/23 05:22 Urine Color Yellow (Yellow) 11/01/23 14:20 Urine Clarity Clear (Clear) 11/01/23 14:20 Urine pH 5.5 (5.0-7.0) 11/01/23 14:20 Ur Specific [place] 1.028 (1.005-1.030) 11/01/23 14:20 Glucose (UA)(Auto) Negative (Negative) 11/01/23 14:20 Urine Ketones Negative (Negative) 11/01/23 14:20 Urine Blood Negative (Negative) 11/01/23 14:20 Urine Nitrite Negative (Negative) 11/01/23 14:20 Urine Bilirubin Negative (Negative) 11/01/23 14:20 Urine Urobilinogen Normal (Normal) 11/01/23 14:20 Ur Leukocyte Esterase 250 Juliet/uL (Negative) H 11/01/23 14:20 Urine RBC 5-10 /HPF (None Seen) H 11/01/23 14:20 Urine WBC <5 /HPF (<5) 11/01/23 14:20 Urine WBC Clumps Rare /HPF (None Seen) 11/01/23 14:20 Ur Squamous Epith Cells <5 /HPF (None Seen) 11/01/23 14:20 Urine Bacteria <20 /HPF (<20) 11/01/23 14:20 Hyaline Casts 0-5 /LPF (None Seen) 11/01/23 14:20 Urine Mucus 1+ /HPF (None Seen) 11/01/23 14:20 Urine Culture Reflexed Not needed 11/01/23 14:20 Urine Total Protein Trace (Negative) H 11/01/23 14:20 C. difficile Ag & Toxin Ag neg : tox neg (NEG : NEG) 11/01/23 15:00 Weight: 246 lb Wound Present: No Closed Surgical Incision Present: No Negative Pressure Wound Therapy Present: No Physician Update: Labs reviewed and are stable. Pain is managed. Still fatigued. Depression is much improved on Cymbalta. BIMS 15, SLUMS 28, 3/4 STG. Good swallowing. Up and down 12 steps. Contact guard with steps. Supervision with transfers. Walked 60' with left hand splint on walker. Independent with bed mobility. With OT 2/6 LTG and 6/6 STG. Min assist to sup with dressing and ADLs. Summary: Patient's care plan and technician terminal and repeater goals have been reviewed and revised as necessary. Please see the Rehabilitation Signature page for all necessary signatures.
[2023-11-16 08:32] VITALS: TEMP 97.1
[2023-11-16 09:07] VITALS: O2SAT 93
[2023-11-16 10:13] VITALS: BP 147/69
== END 2023-11-16 15:35 | disposition home health service (06) | DRG 57 ==
LOC: 5TH 22:08
PROVIDERS: ADMIT Psychiatry & Neurology Neurology with Special Qualifications in Child Neurology; ATTEND Psychiatry & Neurology Neurology with Special Qualifications in Child Neurology
PROC: 0HBRXZZ Excision of Toe Nail, External Approach (ICD-10-PCS; principal; 2023-11-05)
PROC: 0HBRXZZ Excision of Toe Nail, External Approach (ICD-10-PCS; 2023-11-05)
PROC: 0HBRXZZ Excision of Toe Nail, External Approach (ICD-10-PCS; 2023-11-05)
PROC: 0HBRXZZ Excision of Toe Nail, External Approach (ICD-10-PCS; 2023-11-05)
PROC: 0HBRXZZ Excision of Toe Nail, External Approach (ICD-10-PCS; 2023-11-05)
PROC: 0HBRXZZ Excision of Toe Nail, External Approach (ICD-10-PCS; 2023-11-05)
PROC: 0HBRXZZ Excision of Toe Nail, External Approach (ICD-10-PCS; 2023-11-05)
PROC: 0HBRXZZ Excision of Toe Nail, External Approach (ICD-10-PCS; 2023-11-05)
PROC: 0HBRXZZ Excision of Toe Nail, External Approach (ICD-10-PCS; 2023-11-05)
PROC: 0HBRXZZ Excision of Toe Nail, External Approach (ICD-10-PCS; 2023-11-05)
DX: I69.354 Hemiplegia and hemiparesis following cerebral infarction affecting left non-dominant side (principal); N39.0 Urinary tract infection, site not specified; I69.322 Dysarthria following cerebral infarction; I69.391 Dysphagia following cerebral infarction; I10 Essential (primary) hypertension; R09.02 Hypoxemia; M19.012 Primary osteoarthritis, left shoulder; M19.011 Primary osteoarthritis, right shoulder; B35.1 Tinea unguium; I70.91 Generalized atherosclerosis; K21.9 Gastro-esophageal reflux disease without esophagitis; B96.20 Unspecified Escherichia coli [E. coli] as the cause of diseases classified elsewhere; K57.90 Diverticulosis of intestine, part unspecified, without perforation or abscess without bleeding; K59.00 Constipation, unspecified; E78.5 Hyperlipidemia, unspecified; F41.9 Anxiety disorder, unspecified; G47.00 Insomnia, unspecified; F32.A Depression, unspecified; J44.9 Chronic obstructive pulmonary disease, unspecified; F17.200 Nicotine dependence, unspecified, uncomplicated; Z79.01 Long term (current) use of anticoagulants
CPT/HCPCS: 36415; 70450; 71045; 72220; 74018; 74176; 80048; 80053; 81001; 82040; 82947; 83735; 84134; 85025; 87077; 87086; 87088; 87186; 87324; 92523; 94010; 97110; 97112; 97116; 97129; 97140; 97161; 97165; 97530; 97542; 97760; J1644; J2001; J7030; J7040; Q0162

== ENCOUNTER 2023-12-20 00:24 | Emergency (ER) | payer BC, OTHER ==
--- OUTSIDE RECORDS SUMMARY | 2023-12-20 00:27 | XMS REPORT | Continuity of Care Document ---
Author Name Unknown Address [address] [place] [address] [facility] Address [address] [place] [address] Care Team Providers Care Painter [employer] Name Role Phone Sindhu Garsia Primary Care Physician + SHIRA FRIEDMAN Attending Clinician Unavailable STEPHEN WARREN Attending Clinician BANDAR Mcconnell Attending Clinician Unavailab ETHEL Ryder Attending Clinician Unavailab JESUS Albrecht Attending Clinician UnavailDUSTIN Wilks V. Attending Clinician Unavailable KIT HARDY Admitting Clinician Unava DUSTIN Zepeda V. Admitting Clinician Unavailable Payers Payer Name Policy Type Policy Number Effective Date Expirati on Date Source [employer] [place] OUT OF STATE [id number] 2007 00:00:00 Allergies, Adverse Reactions, Alerts Allergy Name Allergy Type Status Severity Reaction(s) Onset Date Inactive Date Treating Clinician Comments Source Levoflox acin Allergy to substanc e Active Shortness of breath 08-10 00:00: 00 [facility] Social History Social Habit Start Date Stop Date Quantity Comments Source Sexual orientation 2023-12-17 12:43:37 Heterosexual (finding) [facility] History of tobacco use Cigarette Smoker [facility] Cigarette pack-years 2023-12-17 00:00:00 2023-12-17 00:00:00 [facility] Tobacco use and exposure 2023-12-17 00:00:00 2023-12-17 00:00:00 Smokeless tobacco non-user [facility] Alcoholic beverage intake 2023-12-17 00:00:00 2023-12-17 00:00:00 Lifetime non-drinker (finding) [facility] Cigarettes smoked current (pack per day) - Reported 2023-12-17 00:00:00 2023-12-17 00:00:00 [facility] Sex assigned at 1960 00:00:00 1960 00:00:00 F [facility] Smoking Status Start Date Stop Date Source Smokes tobacco daily 2023-12-17 00:00:00 [facility] Medications Ordered Medication Name Filled Medication Name Start Date Stop Date Current Medication? Ordering Clinician Indication Dosage Frequency Signature (SIG) Comments Components Source traMADol (Ultram) 50 MG tablet 2023-02 00:00: 00 Yes 50mg [id number] 3D Take 50 mg by mouth in the morning and 50 mg at noon and 50 mg in the evening. Take after meals. [facility] buPROPion (Zyban) 150 MG 12 hr tablet 2023-02 00:00: 00 Yes 150mg Q.5D Take 150 mg by mouth in the morning and 150 mg in the evening. [facility] DULoxetine (Cymbalta) [address] capsule 2023-02 00:00: 00 Yes 20mg QD Take 20 mg by mouth 1 (one) time each day. [facility] gabapentin (Neurontin) 300 MG capsule 2023-02 00:00: 00 Yes 300mg Q.5D Take 300 mg by mouth in the morning and 300 mg in the evening. [facility] nicotine (Nicoderm CQ) 14 MG/24HR patch 2023-02 00:00: [address] 14 mg on the skin 1 (one) time each day at the same time. [facility] lisinopril 30 MG tablet 9-19 00:00: 00 Yes 30mg QD Take 30 mg by mouth 1 (one) time each day. [facility] aspirin 81 MG chewable tablet 10-30 00:00: 00 Yes 81mg QD Chew 81 mg 1 (one) time each day. [facility] Vital Signs Vital Name Observation Time Observation Value Comments S abigail Systolic blood pressure 2023-12-17 19:32:00 122 mm[Hg] [facility] Diastolic blood pressure 2023-12-17 19:32:00 81 mm[Hg] [facility] Heart rate 2023-12-17 19:32:00 81 /min [facility] Body temperature 2023-12-17 19:32:00 36.28 Taya [facility] Body height 2023-12-17 19:32:00 170.2 cm [facility] ealt Encounters Start Date/Time End Date/Time Encounter Type Admission Type Attending Clinicians Care Facility Care Department Encounter ID Source 2024-03-24 11:30:00 2024-03-24 11:30:00 Outpatient SHIRA FRIEDMAN [facility] [id number] [facility] 2023-12-17 13:00:00 2023-12-17 13:20:03 Office Visit Shira Friedman [facility] [address] [id number] [facility] 2023-12-10 15:30:00 2023-12-10 15:30:00 Outpatient SHIRA FRIEDMAN [facility] [id number] [facility] 2023-10-29 12:42:00 2023-10-31 20:45:00 Inpatient STEPHEN MARLOW [facility] [id number] [address] [facility] 2023-08-22 15:45:00 2023-08-22 18:45:00 Emergency ER BANDAR MORRIS [facility] [id number] [facility] 2013-08-10 21:11:00 2013-08-11 02:18:00 Emergency ER ETHEL WRAY [facility] [id number] [facility] 2006-08-14 07:48:00 2006-08-14 11:35:00 Emergency ER JESUS BRODERICK [facility] [id number] [facility] 2004-06-15 16:45:00 2004-06-16 18:41:00 Inpatient DUSTIN TORRES [facility] [id number] [facility]
[2023-12-20] MEDS ORDERED: DIPHENHYDRAMINE 50 MG/ML VIAL ONE (01:10)
[2023-12-20] MEDS ORDERED: METOCLOPRAMIDE 10 MG/2mL INJ ONE (01:10)
[2023-12-20] MEDS ORDERED: NA CHLORIDE 0.9% 1,000 ML ONE (01:10)
[2023-12-20 01:36] LABS: Absolute Basophils 0.1 K/uL (0-0.5); Absolute Eosinophils 0.3 K/uL (0-0.5); Absolute Lymphocytes (CBC) 2.7 K/uL (0.7-4.9); Absolute Neutrophil 8.1 K/uL (1.8-8.0); Basophils % 0.9 % (0-1.3); Eosinophils % 2.1 % (0-4.4); Hematocrit 40.5 % (36.0-45.0); Hemoglobin 13.6 g/dL (12.0-15.0); MCH 30.4 pg (27.0-35.0); MCHC 33.5 g/dL (32.0-36.0); MCV 90.9 fL (80-100); MPV 7.8 fL (7.6-11.3); Monocytes % 8.1 % (3.3-12.3); Neutrophils % 66.9 % (41.7-73.7); Nucleated Red Blood Cells % 0.1 % (0-0); Platelets 249 thou/uL (152-406); RBC Red Blood Cell Count 4.46 M/uL (3.86-4.86); Red Cell Distribution Width 14.2 % (12.1-15.2)
[2023-12-20 02:06] LABS: Albumin 3.1 g/dL (3.4-5.0); Albumin/Globulin Ratio 0.6 (1.1-1.8); Anion Gap 8.3 mEq/L (5.0-15.0); Bilirubin Total 0.8 mg/dL (0.2-1.0); Globulin 4.9 g/dL (2.3-3.5)
[2023-12-20 02:07] LABS: Potassium 3.3 mEq/L (3.5-5.1)
[2023-12-20 02:08] LABS: SARS-CoV-2 Antigen CONTROL BLUE LINE VIS/BG OK; SARS-CoV-2 Antigen Rapid Res Negative (Negative)
--- NOTE | 2023-12-20 03:09 | RAD REPORT ---
EXAM DESCRIPTION: CT ABDOMEN PELVIS WITHOUT IV CONTRAST 12/20/2023 2:30 AM [facility] CLINICAL HISTORY: 63 years, Female, Abdominal pain. COMPARISON: CT Abdomen pelvis 11/05/2023. PROCEDURE: Noncontrast images of the abdomen and pelvis were performed from the lung bases to the ischial tubero sities. In addition multiplanar reformats in the coronal and sagittal plane were obtained and reviewed. An individualized dose optimization technique, Automated Exposure Control, was utilized for the perfo rmed procedure. FINDINGS: The lack of IV contrast limits evaluation of solid organs, subtle lesions cannot be exclude d. Lung bases: The lung bases demonstrate to be clear. Liver: Grossly the unopacified liver demonstrates to be normal. Multiple punctate radiodensities eliecer esponding to granulomatous. Gallbladder: The gallbladder demonstrates presence of layering high density structures corresponding to cholelithiasis. No significant inflammatory changes and/or biliary duct dilatation. Adrenal glands: Grossly the unopacified adrenal glands demonstrate to be normal. Pancreas: Grossly the unopacified pancreas demonstrate to be normal Spleen: Multiple punctate densities correspond to splenic granulomas. Kidneys: Grossly the unopacified kidneys demonstrate to be within normal limits. There is mild right extrarenal pelvis and/or mild calyectasis. No significant calculus and/or synovitis obstruction. There is no evidence for nephrolithiasis and/or hydronephrosis. There is a midpole right renal cyst m easuring 1.7 cm on image 26 GI: Grossly the unopacified stomach, small bowel and large bowel demonstrate to be within normal limi ts. No evidence for bowel dilatation and/or free air. The appendix is normal. The left-sided colon/sigmoid colon demonstrates presence of diverticulosis. : The urinary bladder demonstrate to be partially distended. Genitalia: The uterus demonstrate to be somewhat atrophic with no gross abnormalities. There are norm al adnexal structures. Abdominal aorta: The aorta demonstrate demonstrated presence of atherosclerotic disease extending int o the aortic bifurcation and iliac arteries. Retroperitoneum: There is no retroperitoneal lymphadenopathy. There is no evidence for ascites and/or abnormal fluid collections. Bones: The lumbar spine demonstrate multilevel degenerative disc disease. Soft tissues: The rest of the soft tissue and bony structures are within normal limits. IMPRESSION: No evidence for nephrolithiasis and/or hydronephrosis. Mild right extrarenal pelvis and/or mild calyectasis. Right Bosniak I/Bosniak II benign renal cyst measuring 1.7 cm. No follow-up imaging is recommended. JACR 2018 Mar; 264-273, Management of the Incidental Renal Mass on CT, [employer] 2020; [id number], B osniak Classification of Cystic Renal Masses, Version 2019. Cholelithiasis. Colonic diverticulosis without evidence of acute diverticulitis. Old granulomatous disease. Electronically signed by: Antonio Venegas MD 12/20/2023 03:02 AM [facility] Due to temporary technical issues with the PACS/Emulis reporting system, reports are being pearl d by the in-house radiologist without review as a courtesy to ensure prompt reporting the interpreting radiologist is fully responsible for the content of the report. Transcribed Date/Time: 12/20/2023 3:09 AM
--- NOTE | 2023-12-20 03:14 | ER ---
Nurse's Notes [facility] Name: Alona Louie Age: 63 yrs Sex: Female : 1960 Arrival Date: 12/20/2023 Time: 00:24 Bed 2 Private MD: Diagnosis: Infectious gastroenteritis and colitis, unspecified;Hypokalemia;Renal Cyst Presentation: 12/19 00:31 Chief complaint: Patient states: abdominal pain, nausea, vomiting, and diarrhea. ha1 00:31 Coronavirus screen: Vaccine status: Patient reports receiving the 2nd dose of the covid ha1 vaccine. Ebola Screen: No symptoms or risks identified at this time. Initial Sepsis Screen: Does the patient meet any 2 criteria? No. Patient's initial sepsis screen is negative. Does the patient have a suspected source of infection? No. Patient's initial sepsis screen is negative. Risk Assessment: Do you want to hurt yourself or someone else? Patient reports no desire to harm self or others. Onset of symptoms was December 20, 2023. 00:31 Method Of Arrival: Wheelchair ha1 00:31 Acuity: GERARDO 3 ha1 Triage Assessment: 00:31 General: Appears uncomfortable, Behavior is cooperative. Pain: Complains of pain in ha1 abdomen. Neuro: Level of Consciousness is awake, alert, obeys commands, Oriented to person, place, time, situation. GI: Abdomen is round obese, Reports lower abdominal pain, upper abdominal pain, diarrhea, nausea, vomiting. Historical: - Allergies: 00:52 Levaquin; ha1 - PMHx: 00:52 Diverticulitis; Hypertensive disorder; ha1 00:53 stroke; ha1 - Immunization history:: Adult Immunizations up to date. - Infectious Disease History:: Denies. - Social history:: Smoking status: Patient denies any tobacco usage or history of. Screenin:10 Abuse screen: Denies threats or abuse. Nutritional screening: No deficits noted. jj7 Nutritional screening: No deficits noted. Tuberculosis screening: No symptoms or risk factors identified. 01:10 [facility] ED Fall Risk Assessment (Adult) History of falling in the last 3 months, jj7 including since admission No falls in past 3 months (0 pts) Confusion or Disorientation No (0 pts) Intoxicated or Sedated No (0 pts) Impaired Gait Yes (1 pt) Mobility Assist Device Used Yes (1 pt) Altered Elimination No (0 pt) Score/Fall Risk Level 0 - 2 = Low Risk Oriented to surroundings, Maintained a safe environment, Educated pt \T\ family on fall prevention, incl call for assistance when getting out of bed, Assessed \T\ reinforced patient's understanding of fall precautions. Assessment: 01:10 General: Appears in no apparent distress. uncomfortable, Behavior is calm, cooperative, jj7 appropriate for age. Pain: Complains of pain in abdomen. GI: Bowel sounds present X 4 quads. Abdomen is tender to palpation X 4 quads. Reports diarrhea, nausea, vomiting. Vital Signs: 00:31 BP 167 / 82; Pulse 90; Resp 17 S; Temp 98.2(O); Pulse Ox 96% on R/A; Weight 117.93 kg; ha1 Height 5 ft. 7 in. ; 01:30 BP 171 / 90; Pulse 84; Resp 17; Pulse Ox 95% on R/A; jj7 02:30 BP 161 / 82; Pulse 80; Resp 17; Pulse Ox 94% ; jj7 03:23 BP 147 / 83; Pulse 83; Resp 19; Pulse Ox 94% ; jj7 00:31 Body Mass Index 40.72 (117.93 kg, 170.18 cm) ha1 ED Course: 00:28 Patient arrived in ED. jj6 00:31 Angel Trejo MD is Attending Physician. ec2 00:52 Triage completed. ha1 01:02 Antoni Devine, DIONICIO is Primary Nurse. jj7 01:10 Patient has correct armband on for positive identification. Bed in low position. Call jj7 light in reach. Side rails up X2. Adult w/ patient. Provided Education on: USE OF CALL FRANCOIS. Warm blanket given. 01:22 Inserted saline lock: 20 gauge in left hand, using aseptic technique. Blood collected. jj7 Flushed with 10 mL NS. 01:30 SARS RAPID Sent. jj7 01:30 Influenza Screen (a \T\ B) Sent. jj7 01:36 CBC with Diff Sent. jj7 01:36 CMP Sent. jj7 01:36 Lipase Sent. jj7 01:55 CT Abd/Pelvis - Without Contrast In Process Unspecified. EDMS 03:40 No provider procedures requiring assistance completed. IV discontinued, intact, jj7 bleeding controlled, No redness/swelling at site. Pressure dressing applied. Administered Medications: 01:25 Drug: NS 0.9% IV 1000 ml IV at 1 bolus Per protocol; to be given as a bolus over 60 jj7 minutes Route: IV; Rate: 1 bolus; Site: left hand; 02:30 Follow up: IV Status: Completed infusion jj7 01:25 Drug: metoCLOPramide IVP 10 mg IVP once; over 1 to 2 minutes Route: IVP; Site: left jj7 hand; 03:26 Follow up: Response: Marked relief of symptoms jj7 01:25 Drug: diphenhydrAMINE IVP 25 mg IVP once Route: IVP; Site: right antecubital; jj7 03:26 Follow up: Response: Marked relief of symptoms jj7 Medication: 01:10 VIS not applicable for this client. jj7 Outcome: 03:13 Discharge ordered by MD. aragon 03:40 Discharged to home via wheelchair, with family, jj7 03:40 Condition: improved 03:40 Discharge instructions given to patient, family, Instructed on follow up and referral plans. medication usage, Demonstrated understanding of instructions, medications, Prescriptions given X 1, 03:48 Patient left the ED. jj7 Signatures: Dispatcher [employer] Adriana Toussaint jj6 Maricel Corona, RN RN ha1 Antoni Devine RN RN jj7 Angel Trejo MD MD ec2
--- NOTE | 2023-12-20 03:14 | EDPHYS ---
Physician Documentation [facility] Name: Alona Louie Age: 63 yrs Sex: Female : 1960 Arrival Date: 12/20/2023 Time: 00:24 Bed 2 Private MD: ED Physician Angel Trejo HPI: 12/19 00:52 This 63 yrs old Female presents to ER via Unassigned with complaints of ec2 Abdominal Pain, Nausea/Vomiting. 00:52 Patient arrives today for nausea, vomiting, diarrhea. Reports that she is been having ec2 symptoms for approximately 2 to 3 days. Patient reports decreased p.o. intake. Reports generalized abdominal pain.. Historical: - Allergies: 00:52 Levaquin; ha1 - PMHx: 00:52 Diverticulitis; Hypertensive disorder; ha1 00:53 stroke; ha1 - Immunization history:: Adult Immunizations up to date. - Infectious Disease History:: Denies. - Social history:: Smoking status: Patient denies any tobacco usage or history of. ROS: 00:52 Constitutional: as per hpi ec2 Exam: 00:52 Constitutional: GEN: NAD Head: atraumatic Eyes: EOMI Ears: External ears are ec2 normal. CV: regular rate LUNGS: no respiratory distress ABD: non-distended, obese, soft, generally tender, not guarding SKIN: no evidence of rashes MSK: no evidence of trauma Vital Signs: 00:31 BP 167 / 82; Pulse 90; Resp 17 S; Temp 98.2(O); Pulse Ox 96% on R/A; Weight 117.93 kg; ha1 Height 5 ft. 7 in. ; 01:30 BP 171 / 90; Pulse 84; Resp 17; Pulse Ox 95% on R/A; jj7 02:30 BP 161 / 82; Pulse 80; Resp 17; Pulse Ox 94% ; jj7 03:23 BP 147 / 83; Pulse 83; Resp 19; Pulse Ox 94% ; jj7 00:31 Body Mass Index 40.72 (117.93 kg, 170.18 cm) [facility] MDM: 00:33 Medical Screening Exam initiated ec2 00:52 Data reviewed: vital signs, nurses notes. ED course: Patient arrives today for ec2 evaluation of generalized abdominal discomfort along with nausea, vomiting, diarrhea. Will obtain lab work, urine studies, CT imaging and treat the patient symptoms. . 02:13 ED course: CBC shows slight leukocytosis. Metabolic profile with slight hypokalemia ec2 with potassium of 3.3. Lipase within normal ranges. Flu and COVID testing negative. Pending CT imaging.. 03:11 ED course: CT imaging shows a renal cyst, no acute process identified. Gallstones ec2 noted. Diverticulosis without diverticulitis. Suspect gastroenteritis causing the patient's symptoms today. Will discharge to home. Return precautions given.. 12/19 00:52 Order name: CBC with Diff; Complete Time: 02:13 ec2 12/19 00:52 Order name: CMP; Complete Time: 02:13 ec2 12/19 00:52 Order name: Lipase; Complete Time: 02:13 ec2 12/19 00:53 Order name: Influenza Screen (a \T\ B); Complete Time: 02:13 ec2 12/19 00:53 Order name: SARS RAPID; Complete Time: 02:13 ec2 12/19 00:52 Order name: CT Abd/Pelvis - Without Contrast ec2 12/19 00:52 Order name: IV Saline Lock; Complete Time: 01:36 ec2 12/19 00:52 Order name: Labs collected and sent; Complete Time: 01:36 ec2 Administered Medications: 01:25 Drug: NS 0.9% IV 1000 ml IV at 1 bolus Per protocol; to be given as a bolus over 60 jj7 minutes Route: IV; Rate: 1 bolus; Site: left hand; 02:30 Follow up: IV Status: Completed infusion jj7 01:25 Drug: metoCLOPramide IVP 10 mg IVP once; over 1 to 2 minutes Route: IVP; Site: left [facility] hand; 03:26 Follow up: Response: Marked relief of symptoms jj7 01:25 Drug: diphenhydrAMINE IVP 25 mg IVP once Route: IVP; Site: right antecubital; jj7 03:26 Follow up: Response: Marked relief of symptoms jj7 Disposition Summary: 12/20/23 03:13 Discharge Ordered Notes: Location: Home ec2 Condition: Stable ec2 Diagnosis - Infectious gastroenteritis and colitis, unspecified ec2 - Hypokalemia ec2 - Renal Cyst ec2 Followup: ec2 - With: Private Physician - When: - Reason: Re-evaluation by your physician Discharge Instructions: - Discharge Summary Sheet ec2 - Viral Gastroenteritis, Adult ec2 Forms: - Medication Reconciliation Form ec2 - Antibiotic Education ec2 - Prescription Opioid Use ec2 - Patient Portal Instructions ec2 - Leadership Thank You Letter ec2 Prescriptions: - Zofran 4 mg Oral Tablet - take 1 tablet ORAL route every 12 hours As needed; 20 tablet; Refills: 0, ec2 Product Selection Permitted Signatures: Dispatcher [employer] Maricel Nash RN RN ha1 Antoni Devine RN RN jj7 Angel Trejo MD MD ec2
[2023-12-20 04:14] VITALS: TEMP 98.2
[2023-12-20 04:17] VITALS: O2SAT 94
[2023-12-20 04:18] VITALS: BP 147/83
== END 2023-12-20 03:48 | disposition home or self-care (01) ==
LOC: ER 00:24
DX: A09 Infectious gastroenteritis and colitis, unspecified (principal); E87.6 Hypokalemia; N28.1 Cyst of kidney, acquired; Z11.52 Encounter for screening for COVID-19
CPT/HCPCS: 85025; 36415; 83690; 80053; 87804 ×2; 74176; 99284; 87811; J2765; J1200; J7030